=== PATIENT | male | born 1945 ===

== ENCOUNTER 2020-10-16 16:53 | Emergency (ER) | payer MEDICARE ==
[2020-10-16] MEDS ORDERED: hydrALAZINE HCL 20 MG/ML 1 ML VIAL IM STA (17:54)
--- NOTE | 2020-10-16 18:00 | ED ---
General Adult HPI - General Chief complaint: Dizziness Stated complaint: High BP Time Seen by Provider: 10/16/20 17:44 Source: patient Mode of arrival: ambulatory Limitations: no limitations - History of Present Illness Initial comments: Dictation was produced using [employer] dictation software. please excuse any grammatical, word or spelling errors. This patient was cared for during a federal and state declared state of emergency secondary to Covid 19 Chief Complaint: 74-year-old male presents to emergency room with hypertension History of Present Illness: [id number] male he presents to the emergency department for hypertension. Patient was at [facility] when he had his blood pressure checked. Is found to be 188 systolic. His blood pressures rechecked and systolic of 200s. Patient has history of hypertension. Patient takes amlodipine in the morning daily. His hypertension is managed by his primary care physician. Patient denies any chest pain, shortness of breath, strokelike symptoms or headache. Patient has no other complaints at this time. The ROS documented in this emergency department record has been reviewed and confirmed by me. Those systems with pertinent positive or negative responses have been documented in the HPI. All other systems are other negative and/or noncontributory. PHYSICAL EXAM: General Impression: Alert and oriented x3, not in acute distress HEENT: Normocephalic atraumatic, extra-ocular movements intact, pupils equal and reactive to light bilaterally, mucous membranes moist. Cardiovascular: Heart regular rate and rhythm Chest: Able to complete full sentences, no retractions, no tachypnea Abdomen: abdomen soft, non-tender, non-distended, no organomegaly Musculoskeletal: Pulses present and equal in all extremities, no peripheral edema Motor: no focal deficits noted Neurological: CN II-XII grossly intact, no focal motor or sensory deficits noted Skin: Intact with no visualized rashes Psych: Normal affect and mood ED course: 74 y Old male presents to the emergency department for asymptomatic hypertension. Patient has no high-risk features. He has no signs of hyp ertensive emergency. Blood pressure is 169/104, rest of vital signs within acceptable limits. Discussed with patient that he should follow-up with his regular physician for outpatient management of his blood pressure. His EKG is normal. Patient really adamant about receiving some medication in the ER prior to discharge to treat his blood pressure. Given IM hydralazine. He is observed in emergency Department with improvement of blood pressure. Patient is reevaluated prior to discharge and is disabled clinical condition. Patient discharged EKG interpretation: Ventricular rate 75, normal sinus rhythm, OH interval 142, QRS 90, QTC 480. No OH prolongation, no QTC prolongation, no ST or T-wave changes noted. Overall, this EKG is unremarkable - Related Data Allergies Allergy/AdvReac Type Severity Reaction Status Date / Time milk Allergy Nausea & Verified 10/16/20 17:02 Vomiting & Diarrhea Review of Systems ROS Statement: Those systems with pertinent positive or pertinent negative responses have been documented in the HPI. ROS Other: All systems not noted in ROS Statement are negative. 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 Past Psychological History: No Psychological Hx Reported Smoking Status: Former smoker Past Alcohol Use History: None Reported Past Drug Use History: None Reported General Exam Limitations: no limitations Course Vital Signs 10/16/20 17:03 Temperature 98.4 F Pulse Rate 84 Respiratory 18 Rate Blood Pressure 169/104 O2 Sat by Pulse 97 Oximetry Disposition Clinical Impression: Hypertension Disposition: HOME SELF-CARE Condition: Good Instructions (If sedation given, give patient instructions): Hypertension (ED) Is patient prescribed a controlled substance at d/c from ED?: No Referrals: Dio Sawant MD [Primary Care Provider] - 1-2 days Time of Disposition: 18:00
[2020-10-16 18:06] VITALS: RESP 16
[2020-10-16 18:42] VITALS: TEMP 97.9
[2020-10-16 19:05] VITALS: BP 179/96; PULSE 74
== END 2020-10-16 19:18 | disposition home or self-care (01) ==
LOC: EC 16:53
DX: I10 Essential (primary) hypertension (principal); Z91.011 Allergy to milk products; Z96.60 Presence of unspecified orthopedic joint implant; Z87.891 Personal history of nicotine dependence
CPT/HCPCS: 93005; 99283; 96372; J0360

== ENCOUNTER 2022-03-15 18:23 | Emergency (ER) | payer MEDICARE ==
[2022-03-15 18:56] VITALS: BP 173/86; PULSE 114; RESP 20; TEMP 99.2
[2022-03-15] MEDS ORDERED: ACETAMINOPHEN TAB 325 MG TAB PO STA (19:30)
--- NOTE | 2022-03-15 19:38 | ED ---
General Adult HPI - General Chief complaint: Upper Respiratory Infection Stated complaint: high BP Time Seen by Provider: 03/15/22 19:30 Source: patient, RN notes reviewed, old records reviewed Mode of arrival: ambulatory Limitations: no limitations - History of Present Illness Initial comments: 76-year-old well-appearing male presents to the emergency room with 2 days of runny nose, cough and headache. Patient states he was exposed to coronavirus 2 days ago. He does have a history of hypertension and his blood pressure has been elevated while he has been sick. He believes his headache is caused from his blood pressure elevation. He did take his blood pressure medication last night. -: days(s) (2) Location: head, abdomen Associated Symptoms: cough, headaches, other (runny nose) Treatments Prior to Arrival: other (Tylenol) - Related Data Home Medications Medication Instructions Recorded Confirmed Finasteride [Proscar] 5 mg PO HS 10/16/20 03/15/22 Terazosin HCl 5 mg PO HS 10/16/20 03/15/22 HYDROcodone/APAP 7.5-325MG [[place] 1 tab PO TID PRN 03/15/22 03/15/22 7.5-325] Previous Rx's Medication Instructions Recorded lisinopriL [Zestril] 20 mg PO HS 30 Days #30 tab 03/15/22 Allergies Allergy/AdvReac Type Severity Reaction Status Date / Time milk AdvReac Nausea & Verified 03/15/22 20:39 Vomiting & Diarrhea Review of Systems ROS Statement: Those systems with pertinent positive or pertinent negative responses have been documented in the HPI. ROS Other: All systems not noted in ROS Statement are negative. 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 Absent: scleral icterus, conjunctival injection ENT exam: Present: normal exam, normal oropharynx, mucous membranes moist Neck exam: Present: normal inspection. Absent: tenderness, meningismus, full ROM, lymphadenopathy Respiratory exam: Present: normal lung sounds bilaterally. Absent: respiratory distress, accessory muscle use Cardiovascular Exam: Present: tachycardia GI/Abdominal exam: Present: soft. Absent: distended, tenderness, rigid Extremities exam: Present: normal inspection, normal capillary refill. Absent: pedal edema Back exam: Present: normal inspection, full ROM. Absent: tenderness, CVA tenderness (R), CVA tenderness (L), rash noted Neurological exam: Present: alert, oriented X3 Psychiatric exam: Present: normal affect, normal mood Skin exam: Present: warm, normal color. Absent: rash, cyanosis, diaphoretic, erythema, petechiae, pallor Course Vital Signs 03/15/22 18:50 Temperature 99.2 F Pulse Rate 114 H Respiratory 20 Rate Blood Pressure 173/86 O2 Sat by Pulse 99 Oximetry Medical Decision Making - Medical Decision Making X-ray shows no evidence of acute infiltrate. Patient is coronavirus positive. He has been vaccinated and boosted. He declined monoclonal antibodies infusion and paxlovid. He was directed to return to the emergency room with any new or concerning symptoms and advised that he can return for monoclonal antibodies infusion with an 10 days from symptom onset. He is agreeable to being discharged. He was also given a prescription for his lisinopril and directed to discuss blood pressure control during follow-up with primary care doctor this week. Case discussed with Dr. Pruitt - Lab Data Lab Results 03/15/22 03/15/22 Range/Units 20:21 20:21 Coronavirus (PCR) Detected A (Not Detectd) Influenza Type A RNA Not Detected (Not Detectd) Influenza Type B (PCR) Not Detected (Not Detectd) Disposition Clinical Impression: COVID-19, Hypertension Disposition: HOME SELF-CARE Condition: Good Instructions (If sedation given, give patient instructions): Coronavirus Disease 2019 (COVID-19), Hypertension (ED) Additional Instructions: You have coronavirus. You are eligible to get the monoclonal antibodies infusion within 10 days from symptom onset. You can return to the emergency room for this infusion within the next 7 days if you choose to receive this medication. Self quarantine for 10 days from symptom onset to prevent spreading the illness. If after 5 days you have no symptoms you can going into public with just a mask. Increase your fluid intake and take Tylenol as needed for any fever or body aches. I recommend that you discuss your elevated blood pressure with your doctor this week. Prescriptions: lisinopriL [Zestril] 20 mg PO HS 30 Days #30 tab Is patient prescribed a controlled substance at d/c from ED?: No Referrals: Dio Sawant MD [Primary Care Provider] - 1-2 days Time of Disposition: 21:10
[2022-03-15] MEDS ORDERED: amLODIPine 5 MG TAB PO STA (19:40)
--- NOTE | 2022-03-15 20:36 | XR ---
EXAMINATION TYPE: XR chest 2V DATE OF EXAM: 03/15/2022 COMPARISON: 10/01/2019 HISTORY: Cough TECHNIQUE: FINDINGS: Heart is normal. Lungs are clear of consolidation. There are no hilar masses. There are surgical clip s at the right pulmonary hilum. There is slight blunting right costophrenic angle. Bony thorax is int act. IMPRESSION: There is minimal pleural reaction lateral right lung base without change. Previous right- sided surgery. No evidence of acute lung disease. Normal heart.
== END 2022-03-15 21:30 | disposition home or self-care (01) ==
LOC: EC 18:23
DX: U07.1 COVID-19 (principal); I10 Essential (primary) hypertension; Z87.891 Personal history of nicotine dependence; Z91.011 Allergy to milk products; Z79.899 Other long term (current) drug therapy
CPT/HCPCS: 71046; 87502; 87635; 99284

== ENCOUNTER 2022-09-16 15:09 | Inpatient (IN) | payer MEDICARE ==
[2022-09-16] MEDS ORDERED: NITROGLYCERIN-D5W PMX 50 MG in DEXTROSE/WATER 1 250ML.BAG IV ONE (15:13)
[2022-09-16] MEDS ORDERED: MORPHINE SULFATE 4 MG/ML SYRINGE IV STA (15:28)
[2022-09-16] MEDS ORDERED: LORazepam 2 MG/ML INJ IV STA (15:28)
--- NOTE | 2022-09-16 15:47 | ED ---
SOB HPI - General Chief Complaint: Shortness of Breath Stated Complaint: ALYSHA Time Seen by Provider: 09/16/22 15:27 Source: EMS Mode of arrival: EMS Limitations: altered mental status - History of Present Illness Initial Comments: This patient is 76-year-old man brought here by EMS. They had been called to [place] for an individual who was having shortness of breath. The patient was very anxious and not able to give them any history. On arrival, the patient is very dyspneic just keeps repeating that he needs to pee. He did deny chest pain, but he is not able to give any other history due to severe dyspnea. MD Complaint: shortness of breath - Related Data Home Medications Medication Instructions Recorded Confirmed Finasteride [Proscar] 5 mg PO HS 10/16/20 09/16/22 HYDROcodone/APAP 7.5-325MG [[place] 1 tab PO TID PRN 03/15/22 09/16/22 7.5-325] Previous Rx's Medication Instructions Recorded lisinopriL [Zestril] 20 mg PO HS 30 Days #30 tab 03/15/22 Acetaminophen Tab [Tylenol] 650 mg PO Q4HR PRN tab 09/20/22 Aspirin 81 mg PO DAILY #30 tab 09/20/22 Doxazosin [Cardura] 4 mg PO HS #30 tab 09/20/22 Famotidine [Pepcid] 20 mg PO DAILY #30 tab 09/20/22 Furosemide [Lasix] 40 mg PO DAILY #30 tab 09/20/22 carvediloL [Coreg] 3.125 mg PO BID-W/MEALS #60 tab 09/20/22 lisinopriL [Zestril] 20 mg PO DAILY #30 tab 09/20/22 Allergies Allergy/AdvReac Type Severity Reaction Status Date / Time milk AdvReac Nausea & Verified 09/16/22 16:42 Vomiting & Diarrhea Review of Systems ROS Statement: Those systems with pertinent positive or pertinent negative responses have been documented in the HPI. ROS Other: All systems not noted in ROS Statement are negative. 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 Absent: scleral icterus, conjunctival injection Neck exam: Present: normal inspection, full ROM. Absent: meningismus Respiratory exam: Present: respiratory distress, rales, rhonchi, accessory muscle use. Absent: wheezes, stridor Cardiovascular Exam: Present: normal rhythm, tachycardia, systolic murmur. Absent: diastolic murmur, rubs, gallop GI/Abdominal exam: Present: soft. Absent: distended, tenderness, guarding, re bound, rigid, mass, pulsatile mass Extremities exam: Present: normal inspection, normal capillary refill. Absent: pedal edema, calf tenderness Back exam: Present: normal inspection. Absent: CVA tenderness (R), CVA tenderness (L) Neurological exam: Present: alert Skin exam: Present: intact, diaphoretic, mottled. Absent: rash Course Vital Signs 09/16/22 09/16/22 09/16/22 15:25 15:28 15:32 Temperature Pulse Rate 103 H 102 H Pulse Rate [ Pulse Oximetery ] Respiratory 40 H 28 H Rate Blood Pressure 216/120 126/80 Blood Pressure [Right Arm] O2 Sat by Pulse 98 98 Oximetry Fraction of 100 Inspired Oxygen (FIO2) 09/16/22 09/16/22 09/16/22 15:35 16:00 16:20 Temperature Pulse Rate 78 87 Pulse Rate [ Pulse Oximetery ] Respiratory 22 24 Rate Blood Pressure 112/80 84/56 Blood Pressure [Right Arm] O2 Sat by Pulse 100 100 Oximetry Fraction of 100 Inspired Oxygen (FIO2) 09/16/22 09/16/22 09/16/22 17:45 18:21 19:00 Temperature 97.6 F Pulse Rate 77 Pulse Rate [ 76 Pulse Oximetery ] Respiratory 22 18 Rate Blood Pressure 139/73 Blood Pressure 136/77 [Right Arm] O2 Sat by Pulse 100 99 100 Oximetry Fraction of Inspired Oxygen (FIO2) 09/16/22 09/16/22 09/16/22 19:23 19:24 22:59 Temperature Pulse Rate Pulse Rate [ Pulse Oximetery ] Respiratory Rate Blood Pressure Blood Pressure [Right Arm] O2 Sat by Pulse Oximetry Fraction of 50 40 40 Inspired Oxygen (FIO2) 09/16/22 09/17/22 09/17/22 23:52 03:29 04:52 Temperature Pulse Rate 88 Pulse Rate [ Pulse Oximetery ] Respiratory 19 Rate Blood Pressure 136/65 Blood Pressure [Right Arm] O2 Sat by Pulse 99 96 Oximetry Fraction of 40 Inspired Oxygen (FIO2) 09/17/22 09/17/22 09/17/22 05:59 08:38 12:40 Temperature 97.7 F Pulse Rate 68 82 77 Pulse Rate [ Pulse Oximetery ] Respiratory 16 20 18 Rate Blood Pressure 144/64 138/73 142/71 Blood Pressure [Right Arm] O2 Sat by Pulse 96 97 99 Oximetry Fraction of Inspired Oxygen (FIO2) 09/17/22 09/17/22 14:14 15:05 Temperature Pulse Rate 81 81 Pulse Rate [ Pulse Oximetery ] Respiratory 18 18 Rate Blood Pressure 143/77 138/76 Blood Pressure [Right Arm] O2 Sat by Pulse 99 99 Oximetry Fraction of Inspired Oxygen (FIO2) Medical Decision Making - Medical Decision Making This patient is 76-year-old man brought by ambulance to have evaluation for severe dyspnea. On arrival patient markedly hypertensive, tachycardic, tachypnea and poor saturations. He is brought directly to the trauma bay, where he is placed on monitors and supplemental oxygen. IV is started to administer nitroglycerin as well as other medications, and respiratory paged and on arrival placed patient on BiPAP. IV morphine given for preload reduction. Ativan given as patient very anxious and attempting to get out of bed. On arrival it appeared patient would require intubation but he did rapidly respond to IV nitroglycerin. He was given 2 aliquots by myself standing at the bedside rechecking the blood pressure. The patient was able to be weaned from the BiPAP mask to a nonrebreather mask. He is able to speak initially in short phrases then in sentences. Patient denying chest pains throughout. Case is discussed with admitting physician and then also with pulmonology. - Lab Data Result diagrams: 09/20/22 07:35 09/20/22 07:35 Lab Results 09/16/22 09/16/22 09/16/22 Range/Units 15:55 15:55 15:55 WBC 9.8 (3.8-10.6) k/uL RBC 4.08 L (4.30-5.90) m/uL Hgb 13.5 (13.0-17.5) gm/dL Hct 41.8 (39.0-53.0) % MCV 102.5 H (80.0-100.0) fL MCH 33.1 (25.0-35.0) pg MCHC 32.3 (31.0-37.0) g/dL RDW 12.3 (11.5-15.5) % Plt Count 301 (150-450) k/uL MPV 9.9 Neutrophils % 68 % Lymphocytes % 25 % Monocytes % 4 % Eosinophils % 1 % Basophils % 1 % Neutrophils # 6.6 (1.3-7.7) k/uL Lymphocytes # 2.5 (1.0-4.8) k/uL Monocytes # 0.4 (0-1.0) k/uL Eosinophils # 0.1 (0-0.7) k/uL Basophils # 0.1 (0-0.2) k/uL Hypochromasia Slight PT 10.4 (9.0-12.0) sec INR 1.0 (<1.2) APTT 22.2 (22.0-30.0) sec D-Dimer 1.52 H (<0.60) mg/L FEU Sodium 143 (137-145) mmol/L Potassium 3.3 L (3.5-5.1) mmol/L Chloride 107 (98-107) mmol/L Carbon Dioxide 24 (22-30) mmol/L Anion Gap 12 mmol/L BUN 16 (9-20) mg/dL Creatinine 0.87 (0.66-1.25) mg/dL Est GFR (CKD-EPI)AfAm >90 (>60 ml/min/1.73 sqM) Est GFR (CKD-EPI)NonAf 84 (>60 ml/min/1.73 sqM) Glucose 214 H (74-99) mg/dL Plasma Lactic Acid Solo (0.7-2.0) mmol/L Calcium 8.3 L (8.4-10.2) mg/dL Magnesium 2.0 (1.6-2.3) mg/dL Total Bilirubin 0.7 (0.2-1.3) mg/dL AST 62 H (17-59) U/L ALT 56 H (4-49) U/L Alkaline Phosphatase 96 (38-126) U/L Troponin I (0.000-0.034) ng/mL NT-Pro-B Natriuret Pep pg/mL Total Protein 6.9 (6.3-8.2) g/dL Albumin 4.2 (3.5-5.0) g/dL Coronavirus (PCR) (Not Detectd) Influenza Type A RNA (Not Detectd) Influenza Type B (PCR) (Not Detectd) 09/16/22 09/16/22 09/16/22 Range/Units 15:55 15:55 15:55 WBC (3.8-10.6) k/uL RBC (4.30-5.90) m/uL Hgb (13.0-17.5) gm/dL Hct (39.0-53.0) % MCV (80.0-100.0) fL MCH (25.0-35.0) pg MCHC (31.0-37.0) g/dL RDW (11.5-15.5) % Plt Count (150-450) k/uL MPV Neutrophils % % Lymphocytes % % Monocytes % % Eosinophils % % Basophils % % Neutrophils # (1.3-7.7) k/uL Lymphocytes # (1.0-4.8) k/uL Monocytes # (0-1.0) k/uL Eosinophils # (0-0.7) k/uL Basophils # (0-0.2) k/uL Hypochromasia PT (9.0-12.0) sec INR (<1.2) APTT (22.0-30.0) sec D-Dimer (<0.60) mg/L FEU Sodium (137-145) mmol/L Potassium (3.5-5.1) mmol/L Chloride (98-107) mmol/L Carbon Dioxide (22-30) mmol/L Anion Gap mmol/L BUN (9-20) mg/dL Creatinine (0.66-1.25) mg/dL Est GFR (CKD-EPI)AfAm (>60 ml/min/1.73 sqM) Est GFR (CKD-EPI)NonAf (>60 ml/min/1.73 sqM) Glucose (74-99) mg/dL Plasma Lactic Acid Solo 6.2 H* (0.7-2.0) mmol/L Calcium (8.4-10.2) mg/dL Magnesium (1.6-2.3) mg/dL Total Bilirubin (0.2-1.3) mg/dL AST (17-59) U/L ALT (4-49) U/L Alkaline Phosphatase (38-126) U/L Troponin I 0.027 (0.000-0.034) ng/mL NT-Pro-B Natriuret Pep 1010 pg/mL Total Protein (6.3-8.2) g/dL Albumin (3.5-5.0) g/dL Coronavirus (PCR) (Not Detectd) Influenza Type A RNA (Not Detectd) Influenza Type B (PCR) (Not Detectd) 09/16/22 09/16/22 Range/Units 15:55 15:55 WBC (3.8-10.6) k/uL RBC (4.30-5.90) m/uL Hgb (13.0-17.5) gm/dL Hct (39.0-53.0) % MCV (80.0-100.0) fL MCH (25.0-35.0) pg MCHC (31.0-37.0) g/dL RDW (11.5-15.5) % Plt Count (150-450) k/uL MPV Neutrophils % % Lymphocytes % % Monocytes % % Eosinophils % % Basophils % % Neutrophils # (1.3-7.7) k/uL Lymphocytes # (1.0-4.8) k/uL Monocytes # (0-1.0) k/uL Eosinophils # (0-0.7) k/uL Basophils # (0-0.2) k/uL Hypochromasia PT (9.0-12.0) sec INR (<1.2) APTT (22.0-30.0) sec D-Dimer (<0.60) mg/L FEU Sodium (137-145) mmol/L Potassium (3.5-5.1) mmol/L Chloride (98-107) mmol/L Carbon Dioxide (22-30) mmol/L Anion Gap mmol/L BUN (9-20) mg/dL Creatinine (0.66-1.25) mg/dL Est GFR (CKD-EPI)AfAm (>60 ml/min/1.73 sqM) Est GFR (CKD-EPI)NonAf (>60 ml/min/1.73 sqM) Glucose (74-99) mg/dL Plasma Lactic Acid Solo (0.7-2.0) mmol/L Calcium (8.4-10.2) mg/dL Magnesium (1.6-2.3) mg/dL Total Bilirubin (0.2-1.3) mg/dL AST (17-59) U/L ALT (4-49) U/L Alkaline Phosphatase (38-126) U/L Troponin I (0.000-0.034) ng/mL NT-Pro-B Natriuret Pep pg/mL Total Protein (6.3-8.2) g/dL Albumin (3.5-5.0) g/dL Coronavirus (PCR) Not Detected (Not Detectd) Influenza Type A RNA Not Detected (Not Detectd) Influenza Type B (PCR) Not Detected (Not Detectd) - EKG Data -: EKG Interpreted by [facility] EKG shows normal: sinus rhythm, axis (Normal), intervals (Normal), ST-T waves (Possible lateral ischemia) Rate: tachycardia (Rate 111 bpm) Critical Care Time Critical Care Time: Yes (40 minutes) Disposition Clinical Impression: Hypertensive emergency, CHF (congestive heart failure) Disposition: ADMITTED IP TO THIS HOSP Condition: Fair Is patient prescribed a controlled substance at d/c from ED?: No Time of Disposition: 17:15
[2022-09-16 15:59] LABS: Basophils # (A) 0.1 k/uL (0-0.2); Basophils % (A) 1 %; Eosinophils # (A) 0.1 k/uL (0-0.7); Eosinophils % (A) 1 %; HCT 41.8 % (39.0-53.0); HGB 13.5 gm/dL (13.0-17.5); Hypochromasia Slight; Lymphocytes # (A) 2.5 k/uL (1.0-4.8); Lymphocytes % (A) 25 %; MCH 33.1 pg (25.0-35.0); MCHC 32.3 g/dL (31.0-37.0); MCV 102.5 fL (80.0-100.0); Mean Platelet Volume 9.9; Monocytes # (A) 0.4 k/uL (0-1.0); Monocytes % (A) 4 %; Neutrophils # (A) 6.6 k/uL (1.3-7.7); Neutrophils % (A) 68 %; Platelet Count 301 k/uL (150-450); RBC 4.08 m/uL (4.30-5.90); RDW 12.3 % (11.5-15.5); WBC 9.8 k/uL (3.8-10.6)
[2022-09-16 16:08] LABS: ALT 56 U/L (4-49); AST 62 U/L (17-59); African American GFR (CKD) >90 (>60 ml/min/1.73 sqM); Albumin 4.2 g/dL (3.5-5.0); Alkaline Phosphatase 96 U/L (38-126); Anion Gap 12 mmol/L; Blood Urea Nitrogen 16 mg/dL (9-20); Calcium 8.3 mg/dL (8.4-10.2); Carbon Dioxide 24 mmol/L (22-30); Chloride 107 mmol/L (98-107); Glucose 214 mg/dL (74-99); Non-African American GFR(CKD) 84 (>60 ml/min/1.73 sqM); Potassium 3.3 mmol/L (3.5-5.1); Sodium 143 mmol/L (137-145); Total Bilirubin 0.7 mg/dL (0.2-1.3); Total Protein 6.9 g/dL (6.3-8.2)
[2022-09-16 16:21] LABS: Partial Thromboplastin Time 22.2 sec (22.0-30.0); Prothrombin Time 10.4 sec (9.0-12.0)
--- NOTE | 2022-09-16 16:26 | XR ---
EXAMINATION TYPE: XR chest 1V portable DATE OF EXAM: 09/16/2022 HISTORY: Shortness of breath. COMPARISON: 03/15/2022 TECHNIQUE: Single view of the chest is submitted. FINDINGS: Demonstrated are scattered senescent parenchymal change. Perihilar and basilar infiltrates noted which could be on the basis of pneumonia versus pulmonary palomo ma. No sizable pleural effusion however is noted at this time. Correlate clinically. The heart is stable. Hilar and mediastinal structures are within normal limits. Degenerative changes are seen of the dorsal spine. IMPRESSION: 1. Perihilar and basilar infiltrates noted which could be on the basis of pneumonia versus pulmonary edema. Correlate clinically
[2022-09-16] MEDS ORDERED: INSULIN REGULAR 100 UNIT/ML VIAL (IV) SQ STA (16:34)
[2022-09-16] MEDS ORDERED: POTASSIUM CHLORIDE ER 20 MEQ TAB.ER PO STA (16:34)
[2022-09-16] MEDS ORDERED: NALOXONE 0.4 MG/ML 1 ML VIAL IV PRN (17:15)
[2022-09-16] MEDS ORDERED: ACETAMINOPHEN TAB 325 MG TAB PO PRN (17:15)
[2022-09-16] MEDS ORDERED: Potassium Replacement Protocol 1 EACH MISC MISCELLANE PRN (17:15)
--- NOTE | 2022-09-16 18:27 | CT ---
EXAMINATION TYPE: CT chest angio for PE DATE OF EXAM: 09/16/2022 COMPARISON: NONE HISTORY: Dyspnea, pt on non-rebreather, not able to follow breathing instructions. CT DLP: 474.5 mGycm. Automated Exposure Control for Dose Reduction was Utilized. CONTRAST: CTA scan of the thorax is performed with IV Contrast, patient injected with 100 mL of Isovu e 370. MIP Images are created on CT scanner and reviewed. 3D reconstructed images are created on an independent workstation and reviewed. FINDINGS: Limitation: There is motion artifact and bilateral upper extremity streak artifact on all images, and additional streak artifact at the level of the distalmost SVC. LUNGS: The airways are unremarkable. There is a prominent interstitial pattern of increased attenuati on seen throughout the lungs bilaterally, and widespread groundglass opacity pattern seen throughout the lungs as well. These changes are consistent with a clinical diagnosis of advanced interstitial an d alveolar phase pulmonary edema. PLEURAL SPACES: Negative MEDIASTINUM: There is satisfactory enhancement of the pulmonary artery and its branches, with no CT e vidence for pulmonary embolism. No acute aortic findings. Pulmonary arterial There are no greater deneen n 1 cm hilar or mediastinal lymph nodes. No cardiomegaly or pericardial effusion is seen. Prominent c oronary calcifications are seen. OTHER / MISCELLANEOUS: No acute findings. IMPRESSION: 1. Negative for pulmonary embolism. 2. Severe lung parenchymal abnormalities bilaterally, likely advanced pulmonary edema.
[2022-09-16] MEDS: SODIUM CHLORIDE 0.9% 1,000 ML IV SCH (18:35)
[2022-09-16] MEDS ORDERED: NITROGLYCERIN OINT 1 INCH/GM PACKET TOPICAL STA (18:50)
[2022-09-16] MEDS: DOXAZOSIN 4 MG TAB PO SCH (22:14)
[2022-09-16] MEDS: FAMOTIDINE 20 MG TAB PO SCH (22:14)
[2022-09-16] MEDS: FINASTERIDE 5 MG TAB PO SCH (22:14)
[2022-09-17 06:15] LABS: Basophils % (A) 0 %; Eosinophils # (A) 0.1 k/uL (0-0.7); Eosinophils % (A) 1 %; HCT 33.9 % (39.0-53.0); HGB 11.1 gm/dL (13.0-17.5); Lymphocytes # (A) 0.8 k/uL (1.0-4.8); Lymphocytes % (A) 8 %; MCH 32.9 pg (25.0-35.0); MCHC 32.9 g/dL (31.0-37.0); MCV 99.8 fL (80.0-100.0); Mean Platelet Volume 10.5; Monocytes # (A) 0.5 k/uL (0-1.0); Monocytes % (A) 5 %; Neutrophils # (A) 8.7 k/uL (1.3-7.7); Neutrophils % (A) 85 %; Platelet Count 224 k/uL (150-450); RBC 3.39 m/uL (4.30-5.90); RDW 12.9 % (11.5-15.5); WBC 10.2 k/uL (3.8-10.6)
[2022-09-17 06:31] LABS: African American GFR (CKD) >90 (>60 ml/min/1.73 sqM); Anion Gap 5 mmol/L; Blood Urea Nitrogen 21 mg/dL (9-20); Carbon Dioxide 27 mmol/L (22-30); Chloride 108 mmol/L (98-107); Glucose 99 mg/dL (74-99); Non-African American GFR(CKD) >90 (>60 ml/min/1.73 sqM); Potassium 3.4 mmol/L (3.5-5.1); Sodium 140 mmol/L (137-145)
[2022-09-17] MEDS: FAMOTIDINE 20 MG TAB PO SCH ×2 (08:35→19:41)
[2022-09-17] MEDS: HYDROcodone/APAP 7.5-325MG 1 EACH TAB PO PRN ×3 (08:35→23:23)
[2022-09-17] MEDS ORDERED: FUROSEMIDE 10 MG/ML 4 ML VIAL IV SCH (09:30)
--- NOTE | 2022-09-17 11:49 | CA ---
Transthoracic Echo Report Name: Rojelio Pizarro Age: 76 Gender: M : 1945 Exam Date: 09/17/2022 09:45 Exam Location: [facility] Ht (in): 60 Wt (lb): 110 Ordering Physician: Jessica Clark Attending/Referring Phys: Water Inspector Alis Balderas RDCS Procedure CPT: Indications: chf Cardiac Hx: Technical Quality: Contrast 1: Total Dose (mL): Contrast 2: Total Dose (mL): MEASUREMENTS (Male / Female) Normal Values 2D ECHO LV Diastolic Diameter PLAX 4.8 cm 4.2 - 5.9 / 3.9 - 5.3 cm LV Systolic Diameter PLAX 3.8 cm IVS Diastolic Thickness 1.1 cm 0.6 - 1.0 / 0.6 - 0.9 cm LVPW Diastolic Thickness 1.8 cm 0.6 - 1.0 / 0.6 - 0.9 cm LV Relative Wall Thickness 0.6 RV Internal Dim ED PLAX 3.0 cm LA Systolic Diameter LX 4.0 cm 3.0 - 4.0 / 2.7 - 3.8 cm LA Volume 95.6 cm??? 18 - 58 / 22 - 52 cm??? M-MODE Aortic Root Diameter MM 3.6 cm LA Systolic Diameter MM 4.3 cm LA Ao Ratio MM 1.2 MV E Point Septal Separation 0.8 cm AV Cusp Separation MM 1.5 cm DOPPLER AV Peak Velocity 151.6 cm/s AV Peak Gradient 9.2 mmHg MV Area PHT 2.8 cm??? Mitral E Point Velocity 124.3 cm/s Mitral A Point Velocity 110.3 cm/s Mitral E to A Ratio 1.1 MV Deceleration Time 274.9 ms MV E' Velocity 5.5 cm/s Mitral E to MV E' Ratio 22.5 TR Peak Velocity 295.7 cm/s TR Peak Gradient 35.0 mmHg Right Ventricular Systolic Press 38.9 mmHg FINDINGS Left Ventricle Left ventricular ejection fraction is estimated at 55 %. Left ventricular cavity size normal. Mildly increased left ventricular wall thickness. Right Ventricle Normal right ventricular size and function. Mild pulmonary hypertension. Right Atrium Normal right atrial size. Left Atrium Severely increased left atrial volume. Mildly increased left atrial area. Mitral Valve Structurally normal mitral valve. Mild mitral regurgitation. Aortic Valve Trileaflet aortic valve. Tricuspid Valve Structurally normal tricuspid valve. Mild tricuspid regurgitation. Pulmonic Valve Structurally normal pulmonic valve. Pericardium Normal pericardium. Aorta Normal size aortic root and proximal ascending aorta. CONCLUSIONS LVH with preserved systolic function Previewed by: Dr. Jean Alcantar MD (Electronically Signed) Final Date: 17 September 2022 11:48
--- NOTE | 2022-09-17 12:17 | P.CRDCN ---
History of Present Illness History of present illness: This is a 76 year old male with a past medical history of hypertension. He does not follow with a vp respiratory. We are consulted for hypertensive emergency and congestive heart failure. He presents to the ER with complaints of worsening shortness of breath. He states he stopped taking his antihypertensive medication secondary to cost issues. Over the past week has been getting more short of breath. He endorses some weight loss. He denies any chest pain, lower extremity edema, weight cane, suggest orthopnea or PND. On arrival patient was hypotensive with blood pressure 200s/100s he was also tachycardiac and tachypnea. He was started on IV nitroglycerin and BiPAP. He was stabilized, eventually weaned to nasal cannula. His BP has improved. Initial troponin was negative. He denies any history of CAD, [place], Stroke, diabetes, seizures. Former smoker. DIAGNOSTICS * EKG reveals sinus tachycardia, HR 111, ST depression noted in V4, V5, V6, I, aVL, II and aVF. Prior EKG similar but patient not as tachycardic * Echocardiogram revealed EF 55%, mild mitral regurgitation, mild tricuspid regurgitation * Telemetry tracings indicate sinus rhythm * CTA chest reveal negative for pulmonary embolism, severe lung Abnormalities bilaterally, likely advanced pulmonary edema. * Chest x-ray with bilateral infiltrates noted pneumonia versus pulmonary edema. * Laboratory reviewed, CBC 10.2, hemoglobin 11.1, platelets 224, sodium 140, potassium 3.4, BUN 21, serum current 0.7, troponin negative, proBNP 1010, COVID-19 negative, influenza negative REVIEW OF SYSTEMS At the time of my exam: CONSTITUTIONAL: Denies fever or chills. CARDIOVASCULAR: Denies chest pain, +shortness of breath, Denies orthopnea, PND or palpitations. RESPIRATORY: Denies cough. GASTROINTESTINAL: Denies abdominal pain, diarrhea, constipation, nausea or vomiting. MUSCULOSKELETAL: Denies myalgias. NEUROLOGIC: Denies numbness, tingling, headacbe or weakness. ENDOCRINE: Denies fatigue, weight change, polydipsia or polyurina. GENITOURINARY: Denies burning, hematuria or urgency with micturation. HEMATOLOGIC: Denies history of anemia or bleeding. PHYSICAL EXAMINATION Blood pressure 130/73, heart rate 82, afebrile, saturations 97% on 3 L nasal cannula CONSTITUTIONAL: No apparent distress. HEENT: Head is normocephalic. Pupils are equal, round. Sclerae anicteric. Mucous membranes of the mouth are moist. No JVD. No carotid bruit. CHEST EXAMINATION: Lungs are clear to auscultation. No chest wall tenderness is noted on palpation or with deep breathing. HEART EXAMINATION: Regular rate and rhythm. S1, S2 heard. No murmurs, gallops or rub. ABDOMEN: Soft, nontender. Positive bowel sounds. EXTREMITIES: 2+ peripheral pulses, no lower extremity edema and no calf tenderness. NEUROLOGIC EXAMINATION: Patient is awake, alert and oriented x3. ASSESSMENT Hypertensive emergency, likely related to stopping his medications about 2 weeks ago Shortness of breath Acute heart failure exacerbation with preserved ejection fraction History of hypertension PLAN Trend troponin Repeat EKG Restart Lisinopril 20mg daily IV Lasix for 24 hours Monitor I/Os, daily weights, renal function and electrolytes Lipid panel Discontinue IV nitroglycerin Further recommendations based on clinical course Nurse practitioner note has been reviewed by physician. Signing provider agrees with the documented findings, assessment, and plan of care. 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 Past Psychological History: No Psychological Hx Reported Smoking Status: Former smoker Past Alcohol Use History: None Reported Past Drug Use History: None Reported Medications and Allergies Home Medications Medication Instructions Recorded Confirmed Type Finasteride [Proscar] 5 mg PO HS 10/16/20 09/16/22 History Terazosin HCl 5 mg PO HS 10/16/20 09/16/22 History HYDROcodone/APAP 7.5-325MG [[place] 1 tab PO TID PRN 03/15/22 09/16/22 History 7.5-325] lisinopriL [Zestril] 20 mg PO HS 30 Days #30 tab 03/15/22 09/16/22 Rx Allergies Allergy/AdvReac Type Severity Reaction Status Date / Time milk AdvReac Nausea & Verified 09/16/22 16:42 Vomiting & Diarrhea Physical Exam Vitals: Vital Signs Pulse Resp BP Pulse Ox FiO2 09/17/22 05:59 68 16 144/64 96 09/17/22 04:52 96 09/17/22 03:29 40 09/16/22 23:52 88 19 136/65 99 09/16/22 22:59 40 09/16/22 19:24 40 09/16/22 19:23 50 09/16/22 19:00 100 09/16/22 17:45 77 22 139/73 100 09/16/22 16:20 87 24 84/56 100 09/16/22 16:00 78 22 112/80 100 09/16/22 15:35 100 09/16/22 15:32 102 H 28 H 126/80 98 09/16/22 15:28 103 H 40 H 216/120 98 09/16/22 15:25 100 Intake and Output 09/16/22 09/17/22 09/17/22 22:59 06:59 14:59 Intake Total 1.4 Balance 1.4 Intake: Intake, IV Titration 1.4 Amount Nitroglycerin-D5w Pmx 50 1.4 mg In Dextrose/Water 1 250ml.bag @ 5 MCG/MIN 1.5 mls/hr IV .Q24H ONE Rx#: [id number] Other: Weight 63.503 kg Results 09/17/22 05:27 09/17/22 05:27 Cardiac Enzymes 09/16/22 09/16/22 Range/Units 15:55 15:55 AST 62 H (17-59) U/L Troponin I 0.027 (0.000-0.034) ng/mL Coagulation 09/16/22 Range/Units 15:55 PT 10.4 (9.0-12.0) sec APTT 22.2 (22.0-30.0) sec CBC 09/16/22 09/17/22 Range/Units 15:55 05:27 WBC 9.8 10.2 (3.8-10.6) k/uL RBC 4.08 L 3.39 L (4.30-5.90) m/uL Hgb 13.5 11.1 L (13.0-17.5) gm/dL Hct 41.8 33.9 L (39.0-53.0) % Plt Count 301 224 (150-450) k/uL Comprehensive Metabolic Panel 09/16/22 09/17/22 Range/Units 15:55 05:27 Sodium 143 140 (137-145) mmol/L Potassium 3.3 L 3.4 L (3.5-5.1) mmol/L Chloride 107 108 H (98-107) mmol/L Carbon Dioxide 24 27 (22-30) mmol/L BUN 16 21 H (9-20) mg/dL Creatinine 0.87 0.71 (0.66-1.25) mg/dL Glucose 214 H 99 (74-99) mg/dL Calcium 8.3 L 8.0 L (8.4-10.2) mg/dL AST 62 H (17-59) U/L ALT 56 H (4-49) U/L Alkaline Phosphatase 96 (38-126) U/L Total Protein 6.9 (6.3-8.2) g/dL Albumin 4.2 (3.5-5.0) g/dL Current Medications Generic Name Dose Route Start Last Admin Trade Name Freq PRN Reason Stop Dose Admin Acetaminophen 650 mg 09/16/22 17:15 Acetaminophen Tab 325 Mg Tab PO Q4HR PRN Fever and/or Mild Pain Hydrocodone Bitart/Acetaminophen 1 each 09/16/22 18:30 Hydrocodone/Apap 7.5-325mg 1 Each Tab PO TID PRN Moderate Pain Doxazosin Mesylate 4 mg 09/16/22 21:00 09/16/22 22:14 Doxazosin 4 Mg Tab PO 4 mg HS SORAYA Administration Famotidine 20 mg 09/16/22 21:00 09/16/22 22:14 Famotidine 20 Mg Tab PO 20 mg BID SORAYA Administration Finasteride 5 mg 09/16/22 21:00 09/16/22 22:14 Finasteride 5 Mg Tab PO 5 mg HS SORAYA Administration Nitroglycerin/Dextrose 50 mg/ 250 mls @ 1.5 mls/hr 09/16/22 15:13 09/16/22 16:32 IV Solution IV 09/17/22 15:12 0 mcg/min .Q24H ONE 0 mls/hr Titration Protocol 5 MCG/MIN Sodium Chloride 1,000 mls @ 20 mls/hr 09/16/22 17:15 09/16/22 18:35 Saline 0.9% IV 20 mls/hr .Q24H SORAYA Administration Miscellaneous Information 1 each 09/16/22 17:15 Potassium Replacement Protocol 1 Each Misc MISCELLANE DAILY PRN Per Protocol Naloxone HCl 0.2 mg 12/08/22 17:15 Naloxone 0.4 Mg/Ml 1 Ml Vial IV Q2M PRN Opioid Reversal Intake and Output 09/16/22 09/17/22 09/17/22 22:59 06:59 14:59 Intake Total 1.4 Balance 1.4 Intake: Intake, IV Titration 1.4 Amount Nitroglycerin-D5w Pmx 50 1.4 mg In Dextrose/Water 1 250ml.bag @ 5 MCG/MIN 1.5 mls/hr IV .Q24H ONE Rx#: [id number] Other: Weight 63.503 kg 09/17/22 05:27 09/17/22 05:27
[2022-09-17] MEDS: lisinopriL 20 MG TAB PO SCH (12:30)
[2022-09-17] MEDS ORDERED: HEPARIN SODIUM 1,000 UN/ML (10ML VL) IV PRN (12:52)
[2022-09-17] MEDS ORDERED: HEPARIN SODIUM 1,000 UN/ML (10ML VL) IV ONE (12:52)
[2022-09-17] MEDS ORDERED: POTASSIUM CHLORIDE ER 20 MEQ TAB.ER PO STA (12:55)
[2022-09-17] MEDS: FUROSEMIDE 10 MG/ML 4 ML VIAL IV SCH (13:26)
[2022-09-17 13:39] LABS: Partial Thromboplastin Time 28.3 sec (22.0-30.0); Prothrombin Time 10.7 sec (9.0-12.0)
[2022-09-17] MEDS: HEPARIN SOD,PORK IN 0.45% NACL 25,000 UNIT in 0.45% NACL 1 250ML.BAG IV SCH (14:13)
--- NOTE | 2022-09-17 14:57 | P.CNPUL ---
History of Present Illness Consult date: 09/17/22 Requesting physician: Thony Chung Reason for consult: dyspnea, abnormal CXR/CT Chief complaint: Shortness of breath History of present illness: This is a pleasant 76-year-old male patient who follows with Dr. Sawant as his primary care provider. He has a history of hypertension, BPH. He was brought in by EMS yesterday with a rather acute episode of shortness of breath. he was seen initially in hypertensive urgency with a blood pressure 216/120. Started on a nitroglycerin drip. Chest x-ray revealed perihilar basilar infiltrates suspect pneumonia versus pulmonary edema. CT angiogram ruled out pulmonary embolism. There was increased attenuation throughout the lungs bilaterally, widespread groundglass opacity pattern consistent with interstitial and alveolar pulmonary edema. White count 10.2. Hemoglobin 11.1. Platelet count 224. Sodium 140. Potassium 3.4. Bicarb 27. BUN 21. Creatinine 0.71. initial troponin 0.027. Currently 0.644. ProBNP 1010. Brown virus and influenza screen negative. Echocardiogram did reveal evidence of left ventricular hypertrophy. Preserved left ventricular systolic function with ejection fraction of 55%. No significant valvular abnormalities. He is seen today in consultation in the emergency department. He is currently sitting up on the stretcher. Awake and alert in no acute distress. States he is breathing quite a bit better today compared to yesterday. He is maintaining O2 saturations up to 100% on 2 L/m per nasal cannula. He is afebrile. The pressure improved and nitroglycerin drip is currently off. He remains on heparin drip. He remains on IV diuretics. Review of Systems REVIEW OF SYSTEMS: CONSTITUTIONAL: Denies any recent significant weight loss or weight gain. EYES: Denies change in vision. EARS, NOSE, MOUTH, THROAT: Denies headaches, denies sore throat. CARDIOVASCULAR: Denies chest pain, palpitations or syncopal episodes. RESPIRATORY: Positive for shortness of breath, no cough, congestion or hemoptysis. GASTROINTESTINAL: Denies change in appetite, denies abdominal pain GENITOURINARY: Denies hematuria, denies infections. MUSKULOSKELETAL: Denies pain, denies swelling. INTEGUMENTARY: Denies rash, denies eczema. NEUROLOGICAL: Denies recent memory loss, no recent seizure activity. PSYCHIATRIC: Denies anxiety, denies depression. HEMATOLOGIC/LYMPHATIC: Denies anemia, denies enlarged lymph nodes. 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 Past Psychological History: No Psychological Hx Reported Smoking Status: Former smoker Past Alcohol Use History: None Reported Past Drug Use History: None Reported Medications and Allergies Home Medications Medication Instructions Recorded Confirmed Type Finasteride [Proscar] 5 mg PO HS 10/16/20 09/16/22 History Terazosin HCl 5 mg PO HS 10/16/20 09/16/22 History HYDROcodone/APAP 7.5-325MG [[place] 1 tab PO TID PRN 03/15/22 09/16/22 History 7.5-325] lisinopriL [Zestril] 20 mg PO HS 30 Days #30 tab 03/15/22 09/16/22 Rx Allergies Allergy/AdvReac Type Severity Reaction Status Date / Time milk AdvReac Nausea & Verified 09/16/22 16:42 Vomiting & Diarrhea Physical Exam Vitals: Vital Signs Temp Pulse Resp BP Pulse Ox FiO2 09/17/22 14:14 81 18 143/77 99 09/17/22 12:40 77 18 142/71 99 09/17/22 08:38 97.7 F 82 20 138/73 97 09/17/22 05:59 68 16 144/64 96 09/17/22 04:52 96 09/17/22 03:29 40 09/16/22 23:52 88 19 136/65 99 09/16/22 22:59 40 09/16/22 19:24 40 09/16/22 19:23 50 09/16/22 19:00 100 09/16/22 17:45 77 22 139/73 100 09/16/22 16:20 87 24 84/56 100 09/16/22 16:00 78 22 112/80 100 09/16/22 15:35 100 09/16/22 15:32 102 H 28 H 126/80 98 09/16/22 15:28 103 H 40 H 216/120 98 09/16/22 15:25 100 Intake and Output 09/16/22 09/17/22 09/17/22 22:59 06:59 14:59 Intake Total 1.4 Balance 1.4 Intake: Intake, IV Titration 1.4 Amount Nitroglycerin-D5w Pmx 50 1.4 mg In Dextrose/Water 1 250ml.bag @ 5 MCG/MIN 1.5 mls/hr IV .Q24H ONE Rx#: [id number] Other: Weight 63.503 kg GENERAL EXAM: Alert, pleasant 76-year-old male patient, on 2 L nasal cannula, fairly comfortable in no apparent distress. HEAD: Normocephalic. EYES: Normal reaction of pupils, equal size. NOSE: Clear with pink turbinates. THROAT: No erythema or exudates. NECK: No masses, no JVD. CHEST: No chest wall deformity. LUNGS: Equal air entry with crackles in the bilateral bases. CVS: S1 and S2 normal with no audible murmur, regular rhythm. ABDOMEN: No hepatosplenomegaly, normal bowel sounds, no guarding or rigidity. SPINE: No scoliosis or deformity SKIN: No rashes CENTRAL NERVOUS SYSTEM: No focal deficits, tone is normal in all 4 extremities. EXTREMITIES: There is no peripheral edema. No clubbing, no cyanosis. Peripheral pulses are intact. Results - Laboratory Findings CBC and BMP: 09/17/22 05:27 09/17/22 05:27 PT/INR, D-dimer PT 10.7 sec (9.0-12.0) 09/17/22 12:52 INR 1.0 (<1.2) 09/17/22 12:52 D-Dimer 1.52 mg/L FEU (<0.60) H 09/16/22 15:55 Abnormal lab findings: Abnormal Labs 09/16/22 09/16/22 09/16/22 15:55 15:55 15:55 RBC 4.08 L Hgb Hct MCV 102.5 H Neutrophils # Lymphocytes # D-Dimer 1.52 H Potassium 3.3 L Chloride BUN Glucose 214 H Plasma Lactic Acid Solo Calcium 8.3 L AST 62 H ALT 56 H Troponin I 09/16/22 09/16/22 09/17/22 15:55 20:19 05:27 RBC 3.39 L Hgb 11.1 L Hct 33.9 L MCV Neutrophils # 8.7 H Lymphocytes # 0.8 L D-Dimer Potassium Chloride BUN Glucose Plasma Lactic Acid Solo 6.2 H* 2.7 H* Calcium AST ALT Troponin I 09/17/22 09/17/22 09/17/22 05:27 09:17 13:00 RBC Hgb Hct MCV Neutrophils # Lymphocytes # D-Dimer Potassium 3.4 L Chloride 108 H BUN 21 H Glucose Plasma Lactic Acid Solo Calcium 8.0 L AST ALT Troponin I 0.748 H* 0.644 H* - Diagnostic Findings Chest x-ray: image reviewed CT scan - chest: image reviewed Assessment and Plan Assessment: Acute dyspnea secondary to hypertensive urgency and significant left ventricular hypertrophy with preserved left ventricular systolic function. Initially required a nitroglycerin drip Hypertension Troponin leak, initiated on a heparin drip Benign prostatic hyperplasia plan: The patient was seen and evaluated Chest x-ray, CAT scan, labs and medications reviewed Currently stable and on 2 L nasal cannula Titrate the FiO2 as tolerated Continue diuretics Continue heparin drip Cardiology has been consulted Echocardiogram reviewed We will continue to follow and make further recommendations based on his clinical status I have personally seen and examined the patient, performed the documentation and the assessment and plan as written. Number of minutes spent on the visit: 20
[2022-09-17] MEDS: DOXAZOSIN 4 MG TAB PO SCH (19:41)
[2022-09-17] MEDS: FINASTERIDE 5 MG TAB PO SCH (19:41)
--- NOTE | 2022-09-17 19:44 | P.HPIM ---
History of Present Illness H&P Date: 09/17/22 Chief Complaint: Shortness of breath 76-year-old man brought here by EMS. They had been called to [facility] for an individual who was having shortness of breath. The patient was very anxious and not able to give them any history. On arrival, the patient is very dyspneic just keeps repeating that he needs to pee. He did deny chest pain, but he is not able to give any other history due to severe dyspnea. On arrival patient was hypotensive with blood pressure 200s/100s he was also tachycardiac and tachypnea. He was started on IV nitroglycerin and BiPAP. He was stabilized, eventually weaned to nasal cannula. His BP has improved. Initial troponin was negative. He denies any history of CAD, AL, Stroke, diabetes, seizures. EKG reveals sinus tachycardia, HR 111, ST depression noted in V4, V5, V6, I, aVL, II and aVF. Prior EKG similar but patient not as tachycardic Echocardiogram revealed EF 55%, mild mitral regurgitation, mild tricuspid regurgitation Telemetry tracings indicate sinus rhythm CTA chest reveal negative for pulmonary embolism, severe lung Abnormalities bilaterally, likely advanced pulmonary edema. Chest x-ray with bilateral infiltrates noted pneumonia versus pulmonary edema. Laboratory reviewed, CBC 10.2, hemoglobin 11.1, platelets 224, sodium 140, potassium 3.4, BUN 21, serum current 0.7, troponin negative, proBNP 1010, COVID- 19 negative, influenza negative Review of Systems CONSTITUTIONAL: Denies fever or chills. CARDIOVASCULAR: Denies chest pain, +shortness of breath, Denies orthopnea, PND or palpitations. RESPIRATORY: Denies cough. GASTROINTESTINAL: Denies abdominal pain, diarrhea, constipation, nausea or vomiting. MUSCULOSKELETAL: Denies myalgias. NEUROLOGIC: Denies numbness, tingling, headacbe or weakness. ENDOCRINE: Denies fatigue, weight change, polydipsia or polyurina. GENITOURINARY: Denies burning, hematuria or urgency with micturation. HEMATOLOGIC: Denies history of anemia or bleeding. 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 Past Psychological History: No Psychological Hx Reported Smoking Status: Former smoker Past Alcohol Use History: None Reported Past Drug Use History: None Reported - Past Family History Mother Family Medical History: Diabetes Mellitus Father Family Medical History: Unable to Obtain Medications and Allergies Home Medications Medication Instructions Recorded Confirmed Type Finasteride [Proscar] 5 mg PO HS 10/16/20 09/16/22 History Terazosin HCl 5 mg PO HS 10/16/20 09/16/22 History HYDROcodone/APAP 7.5-325MG [[place] 1 tab PO TID PRN 03/15/22 09/16/22 History 7.5-325] lisinopriL [Zestril] 20 mg PO HS 30 Days #30 tab 03/15/22 09/16/22 Rx Allergies Allergy/AdvReac Type Severity Reaction Status Date / Time milk AdvReac Nausea & Verified 09/16/22 16:42 Vomiting & Diarrhea Physical Exam Vitals: Vital Signs Temp Pulse Resp BP Pulse Ox FiO2 09/17/22 12:40 77 18 142/71 99 09/17/22 08:38 97.7 F 82 20 138/73 97 09/17/22 05:59 68 16 144/64 96 09/17/22 04:52 96 09/17/22 03:29 40 09/16/22 23:52 88 19 136/65 99 09/16/22 22:59 40 09/16/22 19:24 40 09/16/22 19:23 50 09/16/22 19:00 100 09/16/22 17:45 77 22 139/73 100 09/16/22 16:20 87 24 84/56 100 09/16/22 16:00 78 22 112/80 100 09/16/22 15:35 100 09/16/22 15:32 102 H 28 H 126/80 98 09/16/22 15:28 103 H 40 H 216/120 98 09/16/22 15:25 100 Intake and Output 09/16/22 09/17/22 09/17/22 22:59 06:59 14:59 Intake Total 1.4 Balance 1.4 Intake: Intake, IV Titration 1.4 Amount Nitroglycerin-D5w Pmx 50 1.4 mg In Dextrose/Water 1 250ml.bag @ 5 MCG/MIN 1.5 mls/hr IV .Q24H ONE Rx#: [id number] Other: Weight 63.503 kg Blood pressure 130/73, heart rate 82, afebrile, saturations 97% on 3 L nasal cannula CONSTITUTIONAL: No apparent distress. HEENT: Head is normocephalic. Pupils are equal, round. Sclerae anicteric. Mucous membranes of the mouth are moist. No JVD. No carotid bruit. CHEST EXAMINATION: Lungs are clear to auscultation. No chest wall tenderness is noted on palpation or with deep breathing. HEART EXAMINATION: Regular rate and rhythm. S1, S2 heard. No murmurs, gallops or rub. ABDOMEN: Soft, nontender. Positive bowel sounds. EXTREMITIES: 2+ peripheral pulses, no lower extremity edema and no calf tenderness. NEUROLOGIC EXAMINATION: Patient is awake, alert and oriented x3. Results CBC & Chem 7: 09/17/22 05:27 09/17/22 05:27 Labs: Abnormal Lab Results - Last 24 Hours (Table) 09/16/22 09/16/22 09/16/22 Range/Units 15:55 15:55 15:55 RBC 4.08 L (4.30-5.90) m/uL Hgb (13.0-17.5) gm/dL Hct (39.0-53.0) % MCV 102.5 H (80.0-100.0) fL Neutrophils # (1.3-7.7) k/uL Lymphocytes # (1.0-4.8) k/uL D-Dimer 1.52 H (<0.60) mg/L FEU Potassium 3.3 L (3.5-5.1) mmol/L Chloride (98-107) mmol/L BUN (9-20) mg/dL Glucose 214 H (74-99) mg/dL Plasma Lactic Acid Solo (0.7-2.0) mmol/L Calcium 8.3 L (8.4-10.2) mg/dL AST 62 H (17-59) U/L ALT 56 H (4-49) U/L 09/16/22 09/16/22 09/17/22 Range/Units 15:55 20:19 05:27 RBC 3.39 L (4.30-5.90) m/uL Hgb 11.1 L (13.0-17.5) gm/dL Hct 33.9 L (39.0-53.0) % MCV (80.0-100.0) fL Neutrophils # 8.7 H (1.3-7.7) k/uL Lymphocytes # 0.8 L (1.0-4.8) k/uL D-Dimer (<0.60) mg/L FEU Potassium (3.5-5.1) mmol/L Chloride (98-107) mmol/L BUN (9-20) mg/dL Glucose (74-99) mg/dL Plasma Lactic Acid [place] 6.2 H* 2.7 H* (0.7-2.0) mmol/L Calcium (8.4-10.2) mg/dL AST (17-59) U/L ALT (4-49) U/L 09/17/22 Range/Units 05:27 RBC (4.30-5.90) m/uL Hgb (13.0-17.5) gm/dL Hct (39.0-53.0) % MCV (80.0-100.0) fL Neutrophils # (1.3-7.7) k/uL Lymphocytes # (1.0-4.8) k/uL D-Dimer (<0.60) mg/L FEU Potassium 3.4 L (3.5-5.1) mmol/L Chloride 108 H (98-107) mmol/L BUN 21 H (9-20) mg/dL Glucose (74-99) mg/dL Plasma Lactic Acid Solo (0.7-2.0) mmol/L Calcium 8.0 L (8.4-10.2) mg/dL AST (17-59) U/L ALT (4-49) U/L Assessment and Plan Assessment: 1. Acute onset dyspnea; likely related to hypertensive urgency versus significant LVH versus acute exacerbation CHF - Patient is currently on O2 at 2 L per nasal cannula with plans to titrate FiO2 as needed - Patient has been evaluated by cardiology and recommending to monitor EKG and trend troponin; 2-D echocardiogram and lipid panel is ordered 2. Hypertensive emergency; patient was initially treated with IV nitroglycerin which has been discontinued; cardiology recommending to restart home dose of lisinopril 20 mg daily which was discontinued for some time prior to presenting to Hospital; further recommendation pending patient's response to treatment 3. Acute exacerbation CHF with preserved EF; placed on IV Lasix, 40 mg daily, with plans to transition in 24 hours pending clinical course; monitor strict JASON's, daily weights, renal function and electrolytes; low-salt and fluid restricted diet; IV nitroglycerin is discontinued 4. Elevated troponin; cardiology recommending to trend troponin and monitor EKG; patient has been placed on IV heparin infusion; echocardiogram is ordered with plans for further recommendations once results are available 5. BPH; continue with home dose of Proscar; continue with [place] 4 mg by mouth daily at bedtime DVT prophylaxis; SCDs/IV heparin CODE STATUS; full code
[2022-09-17] MEDS: SODIUM CHLORIDE 0.9% 1,000 ML IV SCH (21:57)
[2022-09-18 05:54] LABS: Glucose,Whole Blood 99 mg/dL (70-110)
--- NOTE | 2022-09-18 06:15 | P.PN ---
Subjective Progress Note Date: 09/18/22 Principal diagnosis: Hypertension emergency The patient is a 76-year-old gentleman with a past medical history significant for hypertension who presented to the hospital with increasing shortness of breath and he was diagnosed with hypertension crisis/hypertension emergency comp licated with heart failure. Further investigation was done including an echo which revealed normal left ventricle systolic function. Also the patient was found to have mildly abnormal troponin which is likely related to hypertension emergency. September [id number] The patient was seen and evaluated this morning. He is feeling better indeterminable shortness of breath. He has been diuresing very well. No symptoms of chest pain or chest discomfort and no dizziness or lightheadedness or feeling of heart racing or fluttering or presyncope or syncope. He is on aspirin and he is on heparin. I'm going to add carvedilol to the current medical regimen and if he is also on lisinopril. I would advise continue the current medical regimen at this point. Continue heparin IV for additional 24 hours. Follow-up with the patient. I would continue the IV Lasix for at least additional 24 hours giving that he still wheezing. Objective - Vital Signs Vital signs: Vital Signs Temp 98.2 F 09/18/22 04:00 Pulse 83 09/18/22 04:00 Resp 19 09/18/22 04:00 BP 147/77 09/18/22 04:00 Pulse Ox 97 09/18/22 04:00 FiO2 40 09/17/22 03:29 Intake & Output 09/17/22 09/17/22 09/18/22 06:59 18:59 06:59 Intake Total 118 Output Total 300 Balance -182 Intake: Oral 118 Output: Urine 300 Other: Voiding Method Toilet Urinal - Constitutional General appearance: Present: no acute distress - Respiratory Respiratory: bilateral: wheezing - Cardiovascular Rhythm: regular - Labs CBC & Chem 7: 09/17/22 05:27 09/17/22 05:27 Labs: Abnormal Lab Results - Last 24 Hours (Table) 09/17/22 09/17/22 09/17/22 Range/Units 05:27 05:27 09:17 RBC 3.39 L (4.30-5.90) m/uL Hgb 11.1 L (13.0-17.5) gm/dL Hct 33.9 L (39.0-53.0) % Neutrophils # 8.7 H (1.3-7.7) k/uL Lymphocytes # 0.8 L (1.0-4.8) k/uL APTT (22.0-30.0) sec Potassium 3.4 L (3.5-5.1) mmol/L Chloride 108 H (98-107) mmol/L BUN 21 H (9-20) mg/dL Calcium 8.0 L (8.4-10.2) mg/dL Troponin I 0.748 H* (0.000-0.034) ng/mL 09/17/22 09/17/22 Range/Units 13:00 18:44 RBC (4.30-5.90) m/uL Hgb (13.0-17.5) gm/dL Hct (39.0-53.0) % Neutrophils # (1.3-7.7) k/uL Lymphocytes # (1.0-4.8) k/uL APTT 46.3 H (22.0-30.0) sec Potassium (3.5-5.1) mmol/L Chloride (98-107) mmol/L BUN (9-20) mg/dL Calcium (8.4-10.2) mg/dL Troponin I 0.644 H* (0.000-0.034) ng/mL Assessment and Plan Assessment: Assessment #1 hypertension emergency #2 heart failure exacerbation secondary to heart failure with preserved ejection fraction #3 history of noncompliance with medications Plan #1 continue IV Lasix for additional 24 hours #2 continue monitor the kidney function and electrolytes #3 add carvedilol to the current medical regimen Follow-up with the patient
[2022-09-18] MEDS ORDERED: FUROSEMIDE 10 MG/ML 4 ML VIAL IV SCH (09:00)
[2022-09-18] MEDS: FAMOTIDINE 20 MG TAB PO SCH ×2 (09:00→20:58)
[2022-09-18] MEDS: ASPIRIN 81 MG PO SCH (09:00)
[2022-09-18] MEDS: FUROSEMIDE 10 MG/ML 4 ML VIAL IV SCH (09:01)
[2022-09-18] MEDS: HYDROcodone/APAP 7.5-325MG 1 EACH TAB PO PRN ×2 (09:01→17:40)
[2022-09-18] MEDS: lisinopriL 20 MG TAB PO SCH (09:01)
[2022-09-18] MEDS: carvediloL 3.125 MG TAB PO SCH ×2 (09:01→15:47)
[2022-09-18 10:01] LABS: Basophils % (A) 0 %; Eosinophils # (A) 0.1 k/uL (0-0.7); Eosinophils % (A) 1 %; HCT 36.6 % (39.0-53.0); HGB 12.2 gm/dL (13.0-17.5); Lymphocytes # (A) 0.8 k/uL (1.0-4.8); Lymphocytes % (A) 10 %; MCH 33.7 pg (25.0-35.0); MCHC 33.4 g/dL (31.0-37.0); MCV 100.9 fL (80.0-100.0); Mean Platelet Volume 9.8; Monocytes # (A) 0.4 k/uL (0-1.0); Monocytes % (A) 5 %; Neutrophils # (A) 6.5 k/uL (1.3-7.7); Neutrophils % (A) 82 %; Platelet Count 190 k/uL (150-450); RBC 3.63 m/uL (4.30-5.90); RDW 12.3 % (11.5-15.5); WBC 7.9 k/uL (3.8-10.6)
[2022-09-18 10:10] LABS: Prothrombin Time 10.3 sec (9.0-12.0)
[2022-09-18 10:14] LABS: African American GFR (CKD) >90 (>60 ml/min/1.73 sqM); Anion Gap 8 mmol/L; Blood Urea Nitrogen 20 mg/dL (9-20); Calcium 8.6 mg/dL (8.4-10.2); Carbon Dioxide 28 mmol/L (22-30); Chloride 103 mmol/L (98-107); Glucose 99 mg/dL (74-99); Non-African American GFR(CKD) >90 (>60 ml/min/1.73 sqM); Potassium 3.7 mmol/L (3.5-5.1); Sodium 139 mmol/L (137-145)
--- NOTE | 2022-09-18 13:29 | P.PN ---
Subjective Progress Note Date: 09/18/22 Principal diagnosis: Shortness of breath, hypertensive urgency. This is a pleasant 76-year-old male patient who follows with Dr. Sawant as his primary care provider. He has a history of hypertension, BPH. He was brought in by EMS yesterday with a rather acute episode of shortness of breath. he was seen initially in hypertensive urgency with a blood pressure 216/120. Started on a nitroglycerin drip. Chest x-ray revealed perihilar basilar infiltrates suspect pneumonia versus pulmonary edema. CT angiogram ruled out pulmonary embolism. There was increased attenuation throughout the lungs bilaterally, widespread groundglass opacity pattern consistent with interstitial and alveolar pulmonary edema. White count 10.2. Hemoglobin 11.1. Platelet count 224. Sodium 140. Potassium 3.4. Bicarb 27. BUN 21. Creatinine 0.71. initial troponin 0.027. Currently 0.644. ProBNP 1010. Brown virus and influenza screen negative. Echocardiogram did reveal evidence of left ventricular hypertrophy. Preserved left ventricular systolic function with ejection fraction of 55%. No significant valvular abnormalities. He is seen today in consultation in the emergency department. He is currently sitting up on the stretcher. Awake and alert in no acute distress. States he is breathing quite a bit better today compared to yesterday. He is maintaining O2 saturations up to 100% on 2 L/m per nasal cannula. He is afebrile. The pressure improved and nitroglycerin drip is currently off. He remains on heparin drip. He remains on IV diuretics. Progress note dated 09/18/2022. This is a 76-year-old male seen in room 375. Yesterday, he was seen in the emergency room. He came into the emergency department with significant shortness of breath, and hypertensive emergency/urgency. He responded to BiPAP therapy, diuretics, and IV nitroglycerin. Currently he is getting saline at 50 mL an hour, and IV heparin. He is on room air. He is scheduled to have a cardiac catheterization tomorrow. White count 7.9, hemoglobin 12.2, hematocrit 36.6, and platelet count 290,000. PTT is 37. Sodium 139, potassium 3.7, chlorides 103, CO2 28, BUN 20, creatinine 0.63. Objective - Vital Signs Vital signs: Vital Signs Temp 98.2 F 09/18/22 08:56 Pulse 84 12/10/22 13:08 Resp 18 09/18/22 11:23 BP 131/63 09/18/22 11:23 Pulse Ox 97 09/18/22 11:23 FiO2 21 09/18/22 09:09 Intake & Output 09/17/22 09/18/22 09/18/22 18:59 06:59 18:59 Intake Total 118 392.654 Output Total 300 450 700 Balance -182 -450 -307.346 Intake: Intake, IV Titration 152.654 Amount Heparin Sod,Pork in 0.45% 152.654 NaCl 25,000 unit In 0.45 % NaCl 1 250ml.bag @ 12 UNITS/KG/HR 7.62 mls/hr IV .Q24H [facility] Rx#: [id number] Oral 118 240 Output: Urine 300 450 700 Other: Voiding Method Toilet Toilet Urinal Urinal # Voids 3 - Exam No acute distress, oriented 3. Currently on room air. No respiratory distress. HEENT examination is grossly unremarkable. Neck supple. Full range of motion. No adenopathy thyromegaly or neck vein distention. Cardiovascular examination reveals regular rhythm rate. S1-S2 normal. No S3 or S4. No discernible murmur noted. Heart rate 84 bpm. Lungs reveal clear breath sounds. Breath sounds are equal bilaterally. No a dventitious lung sounds including wheezes rhonchi or crackles. Saturations are 97% on room air. Abdomen soft bowel sounds are heard. No masses or tenderness. Extremities are intact. No cyanosis clubbing or edema. Skin is without rash or lesion. Neurologic examination is brief but nonfocal. - Labs CBC & Chem 7: 09/18/22 09:16 09/18/22 09:16 Labs: Abnormal Lab Results - Last 24 Hours (Table) 09/17/22 09/17/22 09/18/22 Range/Units 13:00 18:44 09:16 RBC (4.30-5.90) m/uL Hgb (13.0-17.5) gm/dL Hct (39.0-53.0) % MCV (80.0-100.0) fL Lymphocytes # (1.0-4.8) k/uL APTT 46.3 H (22.0-30.0) sec Creatinine 0.63 L (0.66-1.25) mg/dL Troponin I 0.644 H* (0.000-0.034) ng/mL 09/18/22 09/18/22 Range/Units 09:16 09:16 RBC 3.63 L (4.30-5.90) m/uL Hgb 12.2 L (13.0-17.5) gm/dL Hct 36.6 L (39.0-53.0) % MCV 100.9 H (80.0-100.0) fL Lymphocytes # 0.8 L (1.0-4.8) k/uL APTT 37.0 H (22.0-30.0) sec Creatinine (0.66-1.25) mg/dL Troponin I (0.000-0.034) ng/mL Assessment and Plan Assessment: Acute dyspnea secondary to hypertensive urgency and pulmonary edema with significant left ventricular hypertrophy and preserved left ventricular systolic function. Hypertension. Troponin leak. Benign prostatic hyperplasia. Plan: Plan dated 09/18/2022. The patient is seen in room 375. He is comfortable. He is on room air. He is getting IV heparin. He's also on saline at 50 mL an hour. According to the nurse, they're planning to do a cardiac catheterization on September 19. We will continue to follow make recommendations along the way. Respiratory status is currently stable. Time with Patient: Less than 30
[2022-09-18] MEDS: HEPARIN SOD,PORK IN 0.45% NACL 25,000 UNIT in 0.45% NACL 1 250ML.BAG IV SCH (15:46)
[2022-09-18] MEDS: SODIUM CHLORIDE 0.9% 1,000 ML IV SCH (15:47)
[2022-09-18 16:23] LABS: Chol/HDL Ratio 3.01 Ratio; LDL Cholesterol,Calculated 106.3 mg/dL (0.0-131.0)
[2022-09-18] MEDS: FINASTERIDE 5 MG TAB PO SCH (20:58)
[2022-09-18] MEDS: DOXAZOSIN 4 MG TAB PO SCH (20:58)
[2022-09-19] MEDS: HYDROcodone/APAP 7.5-325MG 1 EACH TAB PO PRN ×4 (00:52→21:51)
[2022-09-19 05:49] LABS: Glucose,Whole Blood 99 mg/dL (70-110)
--- NOTE | 2022-09-19 06:30 | P.PN ---
Subjective Progress Note Date: 09/19/22 Principal diagnosis: Hypertension emergency The patient is a 76-year-old gentleman with a past medical history significant for hypertension who presented to the hospital with increasing shortness of breath and he was diagnosed with hypertension crisis/hypertension emergency comp licated with heart failure. Further investigation was done including an echo which revealed normal left ventricle systolic function. Also the patient was found to have mildly abnormal troponin which is likely related to hypertension emergency. September 182021 The patient was seen and evaluated this morning. He is feeling better indeterminable shortness of breath. He has been diuresing very well. No symptoms of chest pain or chest discomfort and no dizziness or lightheadedness or feeling of heart racing or fluttering or presyncope or syncope. He is on aspirin and he is on heparin. I'm going to add carvedilol to the current medical regimen and if he is also on lisinopril. I would advise continue the current medical regimen at this point. Continue heparin IV for additional 24 hours. Follow-up with the patient. I would continue the IV Lasix for at least additional 24 hours giving that he still wheezing. September 192021 The patient was seen and evaluated this morning. He is feeling overall better. The shortness of breath has improved significantly. No lower extremity edema. He has been maintaining normal saturation on room air. On examination he is euvolemic with clear breathing sounds bilaterally and no lower extremity edema noted as well. No symptoms of chest pain or chest discomfort. I'm going to stop the Lasix IV and switched into Lasix by mouth. The pressure has been also improved significantly on the current medical regimen. From the cardiac summer dpoint of view, the patient can be discharged home in the next 12-24 hours. The echo was reviewed and showed preserved biventricular systolic function was mild left ventricular hypertrophy/hypertensive heart disease. Objective - Vital Signs Vital signs: Vital Signs Temp 97.7 F 09/19/22 04:00 Pulse 69 09/19/22 04:00 Resp 18 09/19/22 04:00 BP 144/74 09/19/22 04:00 Pulse Ox 98 09/19/22 04:00 FiO2 21 09/18/22 09:09 Intake & Output 09/18/22 09/18/22 09/19/22 06:59 18:59 06:59 Intake Total 697.699 Output Total 450 900 350 Balance -450 -202.301 -350 Weight 71.8 kg Intake: Intake, IV Titration 217.699 Amount Heparin Sod,Pork in 0.45% 217.699 NaCl 25,000 unit In 0.45 % NaCl 1 250ml.bag @ 12 UNITS/KG/HR 7.62 mls/hr IV .Q24H REPLACED [facility] Rx#: [id number] Oral 480 Output: Urine 450 900 350 Other: Voiding Method Toilet Toilet Urinal Urinal # Voids 3 - Constitutional General appearance: Present: no acute distress - Respiratory Respiratory: bilateral: CTA - Cardiovascular Rhythm: regular - Labs CBC & Chem 7: 09/18/22 09:16 09/18/22 09:16 Labs: Abnormal Lab Results - Last 24 Hours (Table) 09/18/22 09/18/22 09/18/22 Range/Units 09:16 09:16 09:16 RBC 3.63 L (4.30-5.90) m/uL Hgb 12.2 L (13.0-17.5) gm/dL Hct 36.6 L (39.0-53.0) % MCV 100.9 H (80.0-100.0) fL Lymphocytes # 0.8 L (1.0-4.8) k/uL APTT (22.0-30.0) sec Creatinine 0.63 L (0.66-1.25) mg/dL HDL Cholesterol 65.10 H (40.00-60.00) mg/dL 09/18/22 09/18/22 09/18/22 Range/Units 09:16 16:06 23:04 RBC (4.30-5.90) m/uL Hgb (13.0-17.5) gm/dL Hct (39.0-53.0) % MCV (80.0-100.0) fL Lymphocytes # (1.0-4.8) k/uL APTT 37.0 H 36.5 H 51.9 H (22.0-30.0) sec Creatinine (0.66-1.25) mg/dL HDL Cholesterol (40.00-60.00) mg/dL Assessment and Plan Assessment: Assessment #1 hypertension crisis/hypertension emergency complicated by heart failure #2 heart failure exacerbation secondary to heart failure with preserved ejection fraction #3 history of noncompliance with medications Plan #1 DC heparin IV #2 continue the current medical regimen with aspirin and beta reanna #3 DC Lasix IV and start the patient on Lasix by mouth #4 the patient can be discharged in the next 12-24 hours
[2022-09-19] MEDS: carvediloL 3.125 MG TAB PO SCH ×2 (06:31→17:07)
[2022-09-19] MEDS: FAMOTIDINE 20 MG TAB PO SCH ×2 (07:35→21:51)
[2022-09-19] MEDS: ASPIRIN 81 MG PO SCH (07:35)
[2022-09-19] MEDS: lisinopriL 20 MG TAB PO SCH (07:35)
[2022-09-19] MEDS: FUROSEMIDE 40 MG TAB PO SCH (07:36)
[2022-09-19] MEDS: SODIUM CHLORIDE 0.9% 1,000 ML IV SCH (07:36)
--- NOTE | 2022-09-19 10:26 | XR ---
EXAMINATION TYPE: XR chest 2V DATE OF EXAM: 09/19/2022 COMPARISON: 09/16/2022 HISTORY: Shortness of breath TECHNIQUE: Frontal and lateral views of the chest are obtained. FINDINGS: Scattered senescent parenchymal changes noted. Hyperinflation compatible with COPD. Resolution of pulmonary edema. Small right pleural effusion residual is noted. Heart size is stable. Mediastinal structures are stable and grossly unremarkable. No evidence for hilar prominence. Degenerative changes dorsal spine. IMPRESSION: 1. Resolution of pulmonary edema. Small right pleural effusion residual is noted.
--- NOTE | 2022-09-19 12:04 | P.PN ---
Subjective Progress Note Date: 09/19/22 Principal diagnosis: Shortness of breath, hypertensive urgency. This is a pleasant 76-year-old male patient who follows with Dr. Sawant as his primary care provider. He has a history of hypertension, BPH. He was brought in by EMS yesterday with a rather acute episode of shortness of breath. he was seen initially in hypertensive urgency with a blood pressure 216/120. Started on a nitroglycerin drip. Chest x-ray revealed perihilar basilar infiltrates suspect pneumonia versus pulmonary edema. CT angiogram ruled out pulmonary embolism. There was increased attenuation throughout the lungs bilaterally, widespread groundglass opacity pattern consistent with interstitial and alveolar pulmonary edema. White count 10.2. Hemoglobin 11.1. Platelet count 224. Sodium 140. Potassium 3.4. Bicarb 27. BUN 21. Creatinine 0.71. initial troponin 0.027. Currently 0.644. ProBNP 1010. Brown virus and influenza screen negative. Echocardiogram did reveal evidence of left ventricular hypertrophy. Preserved left ventricular systolic function with ejection fraction of 55%. No significant valvular abnormalities. He is seen today in consultation in the emergency department. He is currently sitting up on the stretcher. Awake and alert in no acute distress. States he is breathing quite a bit better today compared to yesterday. He is maintaining O2 saturations up to 100% on 2 L/m per nasal cannula. He is afebrile. The pressure improved and nitroglycerin drip is currently off. He remains on heparin drip. He remains on IV diuretics. Progress note dated 09/18/2022. This is a 76-year-old male seen in room 375. Yesterday, he was seen in the emergency room. He came into the emergency department with significant shortness of breath, and hypertensive emergency/urgency. He responded to BiPAP therapy, diuretics, and IV nitroglycerin. Currently he is getting saline at 50 mL an hour, and IV heparin. He is on room air. He is scheduled to have a cardiac catheterization tomorrow. White count 7.9, hemoglobin 12.2, hematocrit 36.6, and platelet count 290,000. PTT is 37. Sodium 139, potassium 3.7, chlorides 103, CO2 28, BUN 20, creatinine 0.63. Progress note dated 09/19/2022. 76-year-old male, seen in room 375. The patient does not need a heart catheteri zation. Yesterday, we were told that he is going to have one today. He is currently not receiving any IV fluids. He is on room air. Saturations are 96%. According to his nurse, the patient does get short of breath with exertion, for example, going to the bathroom. Today's chest x-ray, is much improved, and shows resolution of the patient's CHF, with residual small right-sided effusion. No new laboratory data today other than a PTT of 43. Objective - Vital Signs Vital signs: Vital Signs Temp 98.3 F 09/19/22 07:25 Pulse 73 09/19/22 07:25 Resp 18 09/19/22 07:25 BP 149/66 09/19/22 07:25 Pulse Ox 96 09/19/22 08:07 FiO2 21 09/18/22 09:09 Intake & Output 09/18/22 09/19/22 09/19/22 18:59 06:59 18:59 Intake Total 697.699 Output Total 900 350 Balance -202.301 -350 Weight 71.8 kg Intake: Intake, IV Titration 217.699 Amount Heparin Sod,Pork in 0.45% 217.699 NaCl 25,000 unit In 0.45 % NaCl 1 250ml.bag @ 12 UNITS/KG/HR 7.62 mls/hr IV .Q24H [facility] Rx#: [id number] Oral 480 Output: Urine 900 350 Other: Voiding Method Toilet Toilet Toilet Urinal Urinal Urinal - Exam No acute distress, oriented 3. Currently on room air. No respiratory distress. HEENT examination is grossly unremarkable. Neck supple. Full range of motion. No adenopathy thyromegaly or neck vein distention. Cardiovascular examination reveals regular rhythm rate. S1-S2 normal. No S3 or S4. No discernible murmur noted. Heart rate 73 bpm. Lungs reveal clear breath sounds. Breath sounds are equal bilaterally. No adventitious lung sounds including wheezes rhonchi or crackles. Saturations are 96 % on room air. Abdomen soft bowel sounds are heard. No masses or tenderness. Extremities are intact. No cyanosis clubbing or edema. Skin is without rash or lesion. Neurologic examination is brief but nonfocal. - Labs CBC & Chem 7: 09/18/22 09:16 09/18/22 09:16 Labs: Abnormal Lab Results - Last 24 Hours (Table) 09/18/22 09/18/22 09/18/22 Range/Units 09:16 16:06 23:04 APTT 36.5 H 51.9 H (22.0-30.0) sec HDL Cholesterol 65.10 H (40.00-60.00) mg/dL 09/19/22 Range/Units 06:46 APTT 43.0 H (22.0-30.0) sec HDL Cholesterol (40.00-60.00) mg/dL Assessment and Plan Assessment: Acute dyspnea secondary to hypertensive urgency and pulmonary edema with significant left ventricular hypertrophy and preserved left ventricular systolic function. Hypertension. Troponin leak. Benign prostatic hyperplasia. Plan: Plan dated 09/18/2022. The patient is seen in room 375. He is comfortable. He is on room air. He is getting IV heparin. He's also on saline at 50 mL an hour. According to the nurse, they're planning to do a cardiac catheterization on September 19. We will continue to follow make recommendations along the way. Respiratory status is currently stable. Plan dated 09/19/2022. The patient is again seen in room 375. He appears very comfortable. Not receiving any IV fluids. No supplemental oxygen. Saturations are 96% on room air. Chest x-ray shows improvement of the patient's fluid overload. There is a residual small right-sided effusion. We will continue to follow make recommendations along the way. Prognosis is guarded. Time with Patient: Less than 30
--- NOTE | 2022-09-19 14:35 | P.PN ---
Subjective Progress Note Date: 09/18/22 76-year-old man brought here by EMS. They had been called to [place] for an individual who was having shortness of breath. The patient was very anxious and not able to give them any history. On arrival, the patient is very dyspneic just keeps repeating that he needs to pee. He did deny chest pain, but he is not able to give any other history due to severe dyspnea. On arrival patient was hypotensive with blood pressure 200s/100s he was also tachycardiac and tachypnea. He was started on IV nitroglycerin and BiPAP. He was stabilized, eventually weaned to nasal cannula. His BP has improved. Initial troponin was negative. He denies any history of CAD, MS, Stroke, diabetes, seizures. EKG reveals sinus tachycardia, HR 111, ST depression noted in V4, V5, V6, I, aVL, II and aVF. Prior EKG similar but patient not as tachycardic Echocardiogram revealed EF 55%, mild mitral regurgitation, mild tricuspid regurgitation Telemetry tracings indicate sinus rhythm CTA chest reveal negative for pulmonary embolism, severe lung Abnormalities bilaterally, likely advanced pulmonary edema. Chest x-ray with bilateral infiltrates noted pneumonia versus pulmonary edema. Laboratory reviewed, CBC 10.2, hemoglobin 11.1, platelets 224, sodium 140, potassium 3.4, BUN 21, serum current 0.7, troponin negative, proBNP 1010, COVID- 19 negative, influenza negative Objective - Vital Signs Vital signs: Vital Signs Temp 98.2 F 09/18/22 08:56 Pulse 84 09/18/22 11:23 Resp 18 09/18/22 11:23 BP 131/63 09/18/22 11:23 Pulse Ox 97 09/18/22 11:23 FiO2 21 09/18/22 09:09 Intake & Output 09/17/22 09/18/22 09/18/22 18:59 06:59 18:59 Intake Total 118 152.654 Output Total 300 450 Balance -182 -450 152.654 Intake: Intake, IV Titration 152.654 Amount Heparin Sod,Pork in 0.45% 152.654 NaCl 25,000 unit In 0.45 % NaCl 1 250ml.bag @ 12 UNITS/KG/HR 7.62 mls/hr IV .Q24H [facility] Rx#: [id number] Oral 118 Output: Urine 300 450 Other: Voiding Method Toilet Toilet Urinal Urinal # Voids 3 - Exam Blood pressure 130/73, heart rate 82, afebrile, saturations 97% on 3 L nasal cannula CONSTITUTIONAL: No apparent distress. HEENT: Head is normocephalic. Pupils are equal, round. Sclerae anicteric. Mucous membranes of the mouth are moist. No JVD. No carotid bruit. CHEST EXAMINATION: Lungs are clear to auscultation. No chest wall tenderness is noted on palpation or with deep breathing. HEART EXAMINATION: Regular rate and rhythm. S1, S2 heard. No murmurs, gallops or rub. ABDOMEN: Soft, nontender. Positive bowel sounds. EXTREMITIES: 2+ peripheral pulses, no lower extremity edema and no calf t enderness. NEUROLOGIC EXAMINATION: Patient is awake, alert and oriented x3. - Labs CBC & Chem 7: 09/18/22 09:16 09/18/22 09:16 Labs: Abnormal Lab Results - Last 24 Hours (Table) 09/17/22 09/17/22 09/17/22 Range/Units 09:17 13:00 18:44 RBC (4.30-5.90) m/uL Hgb (13.0-17.5) gm/dL Hct (39.0-53.0) % MCV (80.0-100.0) fL Lymphocytes # (1.0-4.8) k/uL APTT 46.3 H (22.0-30.0) sec Creatinine (0.66-1.25) mg/dL Troponin I 0.748 H* 0.644 H* (0.000-0.034) ng/mL 09/18/22 09/18/22 09/18/22 Range/Units 09:16 09:16 09:16 RBC 3.63 L (4.30-5.90) m/uL Hgb 12.2 L (13.0-17.5) gm/dL Hct 36.6 L (39.0-53.0) % MCV 100.9 H (80.0-100.0) fL Lymphocytes # 0.8 L (1.0-4.8) k/uL APTT 37.0 H (22.0-30.0) sec Creatinine 0.63 L (0.66-1.25) mg/dL Troponin I (0.000-0.034) ng/mL Assessment and Plan Assessment: 1. Acute onset dyspnea; likely related to hypertensive urgency versus si gnificant LVH versus acute exacerbation CHF - Patient is currently on O2 at 2 L per nasal cannula with plans to titrate FiO2 as needed - Patient has been evaluated by cardiology and recommending to monitor EKG and trend troponin; 2-D echocardiogram and lipid panel is ordered 2. Hypertensive emergency; patient was initially treated with IV nitroglycerin which has been discontinued; cardiology recommending to restart home dose of lisinopril 20 mg daily which was discontinued for some time prior to presenting to Hospital; further recommendation pending patient's response to treatment 3. Acute exacerbation CHF with preserved EF; placed on IV Lasix, 40 mg daily, with plans to transition in 24 hours pending clinical course; monitor strict JASON's, daily weights, renal function and electrolytes; low-salt and fluid restricted diet; IV nitroglycerin is discontinued 4. Elevated troponin; cardiology recommending to trend troponin and monitor EKG; patient has been placed on IV heparin infusion; echocardiogram is ordered with plans for further recommendations once results are available 5. BPH; continue with home dose of Proscar; continue with Cardura 4 mg by mouth daily at bedtime DVT prophylaxis; SCDs/IV heparin CODE STATUS; full code
[2022-09-19 15:50] LABS: African American GFR (CKD) >90 (>60 ml/min/1.73 sqM); Anion Gap 5 mmol/L; Blood Urea Nitrogen 18 mg/dL (9-20); Calcium 8.8 mg/dL (8.4-10.2); Carbon Dioxide 30 mmol/L (22-30); Chloride 102 mmol/L (98-107); Glucose 108 mg/dL (74-99); Non-African American GFR(CKD) 87 (>60 ml/min/1.73 sqM); Potassium 3.9 mmol/L (3.5-5.1); Sodium 137 mmol/L (137-145)
[2022-09-19 15:58] LABS: Basophils % (A) 1 %; Eosinophils # (A) 0.2 k/uL (0-0.7); Eosinophils % (A) 2 %; HCT 34.9 % (39.0-53.0); HGB 11.6 gm/dL (13.0-17.5); Lymphocytes # (A) 1.1 k/uL (1.0-4.8); Lymphocytes % (A) 16 %; MCH 33.5 pg (25.0-35.0); MCHC 33.3 g/dL (31.0-37.0); MCV 100.5 fL (80.0-100.0); Mean Platelet Volume 10.9; Monocytes # (A) 0.7 k/uL (0-1.0); Monocytes % (A) 10 %; Neutrophils # (A) 4.6 k/uL (1.3-7.7); Neutrophils % (A) 68 %; Platelet Count 186 k/uL (150-450); RBC 3.47 m/uL (4.30-5.90); RDW 12.6 % (11.5-15.5); WBC 6.8 k/uL (3.8-10.6)
--- NOTE | 2022-09-19 18:17 | P.PN ---
Subjective Progress Note Date: 09/19/22 Principal diagnosis: Acute onset dyspnea related to hypertensive urgency and pulmonary edema Elevated troponin 76-year-old man brought here by EMS. They had been called to [place] for an individual who was having shortness of breath. The patient was very anxious and not able to give them any history. On arrival, the patient is very dyspneic just keeps repeating that he needs to pee. He did deny chest pain, but he is not able to give any other history due to severe dyspnea. On arrival patient was hypotensive with blood pressure 200s/100s he was also tachycardiac and tachypnea. He was started on IV nitroglycerin and BiPAP. He was stabilized, eventually weaned to nasal cannula. His BP has improved. Initial troponin was negative. He denies any history of CAD, [place], Stroke, diabetes, seizures. EKG reveals sinus tachycardia, HR 111, ST depression noted in V4, V5, V6, I, aVL, II and aVF. Prior EKG similar but patient not as tachycardic Echocardiogram revealed EF 55%, mild mitral regurgitation, mild tricuspid regurgitation Telemetry tracings indicate sinus rhythm CTA chest reveal negative for pulmonary embolism, severe lung Abnormalities bi laterally, likely advanced pulmonary edema. Chest x-ray with bilateral infiltrates noted pneumonia versus pulmonary edema. Laboratory reviewed, CBC 10.2, hemoglobin 11.1, platelets 224, sodium 140, po tassium 3.4, BUN 21, serum current 0.7, troponin negative, proBNP 1010, COVID-19 negative, influenza negative 09/19/2022 Patient is seen and evaluated in room at bedside; He is feeling overall better. The shortness of breath has improved significantly. No lower extremity edema. He has been maintaining normal saturation on room air. On examination he is euvolemic with clear breathing sounds bilaterally and no lower extremity edema noted as well. No symptoms of chest pain or chest discomfort. I'm going to stop the Lasix IV and switched into Lasix by mouth. The pressure has been also improved significantly on the current medical regimen. From the cardiac standp oint of view, the patient can be discharged home in the next 12-24 hours. The echo was reviewed and showed preserved biventricular systolic function was mild left ventricular hypertrophy/hypertensive heart disease. --- continue the current medical regimen with aspirin and beta reanna --- DC Lasix IV and start the patient on Lasix by mouth -- the patient can be discharged in the next 12-24 hours Objective - Vital Signs Vital signs: Vital Signs Temp 98.3 F 09/19/22 07:25 Pulse 71 09/19/22 11:03 Resp 18 09/19/22 11:03 BP 157/73 09/19/22 11:03 Pulse Ox 95 09/19/22 11:03 FiO2 21 09/18/22 09:09 Intake & Output 09/18/22 09/19/22 09/19/22 18:59 06:59 18:59 Intake Total 697.699 Output Total 900 350 700 Balance -202.301 -350 -700 Weight 71.8 kg Intake: Intake, IV Titration 217.699 Amount Heparin Sod,Pork in 0.45% 217.699 NaCl 25,000 unit In 0.45 % NaCl 1 250ml.bag @ 12 UNITS/KG/HR 7.62 mls/hr IV .Q24H [facility] Rx#: [id number] Oral 480 Output: Urine 900 350 700 Other: Voiding Method Toilet Toilet Toilet Urinal Urinal Urinal - Exam Blood pressure 130/73, heart rate 82, afebrile, saturations 97% on 3 L nasal cannula CONSTITUTIONAL: No apparent distress. HEENT: Head is normocephalic. Pupils are equal, round. Sclerae anicteric. Mucous membranes of the mouth are moist. No JVD. No carotid bruit. CHEST EXAMINATION: Lungs are clear to auscultation. No chest wall tenderness is noted on palpation or with deep breathing. HEART EXAMINATION: Regular rate and rhythm. S1, S2 heard. No murmurs, gallops or rub. ABDOMEN: Soft, nontender. Positive bowel sounds. EXTREMITIES: 2+ peripheral pulses, no lower extremity edema and no calf tenderness. NEUROLOGIC EXAMINATION: Patient is awake, alert and oriented x3. - Labs CBC & Chem 7: 09/19/22 15:11 09/19/22 15:11 Labs: Abnormal Lab Results - Last 24 Hours (Table) 09/18/22 09/18/22 09/18/22 Range/Units 09:16 16:06 23:04 APTT 36.5 H 51.9 H (22.0-30.0) sec HDL Cholesterol 65.10 H (40.00-60.00) mg/dL 09/19/22 Range/Units 06:46 APTT 43.0 H (22.0-30.0) sec HDL Cholesterol (40.00-60.00) mg/dL Assessment and Plan Assessment: 1. Acute onset dyspnea; likely related to hypertensive urgency versus significant LVH versus acute exacerbation CHF - Patient is currently on O2 at 2 L per nasal cannula with plans to titrate FiO2 as needed - Patient has been evaluated by cardiology and recommending to monitor EKG and trend troponin; 2-D echocardiogram and lipid panel is ordered 2. Hypertensive emergency; patient was initially treated with IV nitroglycerin which has been discontinued; cardiology recommending to restart home dose of lisinopril 20 mg daily which was discontinued for some time prior to presenting to Hospital; further recommendation pending patient's response to treatment 3. Acute exacerbation CHF with preserved EF; placed on IV Lasix, 40 mg daily, with plans to transition in 24 hours pending clinical course; monitor strict JASON's, daily weights, renal function and electrolytes; low-salt and fluid restricted diet; IV nitroglycerin is discontinued 4. Elevated troponin; cardiology recommending to trend troponin and monitor EKG; patient has been placed on IV heparin infusion; echocardiogram is ordered with plans for further recommendations once results are available 5. BPH; continue with home dose of Proscar; continue with Cardura 4 mg by mouth daily at bedtime DVT prophylaxis; SCDs/IV heparin CODE STATUS; full code
[2022-09-19] MEDS: FINASTERIDE 5 MG TAB PO SCH (21:51)
[2022-09-19] MEDS: DOXAZOSIN 4 MG TAB PO SCH (21:52)
[2022-09-20 00:47] VITALS: RESP 16
[2022-09-20] MEDS: carvediloL 3.125 MG TAB PO SCH (06:48)
[2022-09-20 08:02] LABS: Basophils % (A) 0 %; Eosinophils # (A) 0.1 k/uL (0-0.7); Eosinophils % (A) 2 %; HCT 35.5 % (39.0-53.0); HGB 11.7 gm/dL (13.0-17.5); Lymphocytes # (A) 0.8 k/uL (1.0-4.8); Lymphocytes % (A) 14 %; MCH 32.8 pg (25.0-35.0); MCHC 32.9 g/dL (31.0-37.0); MCV 99.9 fL (80.0-100.0); Mean Platelet Volume 9.7; Monocytes # (A) 0.4 k/uL (0-1.0); Monocytes % (A) 7 %; Neutrophils % (A) 72 %; Platelet Count 216 k/uL (150-450); RBC 3.55 m/uL (4.30-5.90); RDW 12.6 % (11.5-15.5); WBC 5.5 k/uL (3.8-10.6)
[2022-09-20 08:24] LABS: African American GFR (CKD) >90 (>60 ml/min/1.73 sqM); Anion Gap 7 mmol/L; Blood Urea Nitrogen 15 mg/dL (9-20); Calcium 8.7 mg/dL (8.4-10.2); Carbon Dioxide 25 mmol/L (22-30); Chloride 107 mmol/L (98-107); Glucose 100 mg/dL (74-99); Non-African American GFR(CKD) >90 (>60 ml/min/1.73 sqM); Potassium 3.6 mmol/L (3.5-5.1); Sodium 139 mmol/L (137-145)
[2022-09-20] MEDS: ASPIRIN 81 MG PO SCH (08:32)
[2022-09-20] MEDS: lisinopriL 20 MG TAB PO SCH (08:32)
[2022-09-20] MEDS: FAMOTIDINE 20 MG TAB PO SCH (08:32)
[2022-09-20] MEDS: FUROSEMIDE 40 MG TAB PO SCH (08:32)
[2022-09-20] MEDS: HYDROcodone/APAP 7.5-325MG 1 EACH TAB PO PRN (08:34)
[2022-09-20 08:36] VITALS: TEMP 98.2
[2022-09-20 12:41] VITALS: BP 164/84; PULSE 76
--- NOTE | 2022-09-20 13:09 | P.PN ---
Subjective Progress Note Date: 09/20/22 This is a pleasant 76-year-old gentleman with a past medical history significant for hypertension. He presented to the hospital with increasing shortness of breath and diagnosed with hypertensive emergency, acute with heart failure. Echocardiogram with Doppler study revealed normal LV systolic function. He was also found to have mildly abnormal troponin which was felt to be likely related to hypertensive emergency. He was initiated on IV Lasix and medical regimen was adjusted. He is currently on oral Lasix. He continues to have some dyspnea on exertion when he gets up to go to the bathroom. His blood pressure remains suboptimally controlled. Objective - Vital Signs Vital signs: Vital Signs Temp 98.2 F 09/20/22 08:00 Pulse 82 09/20/22 08:00 Resp 16 09/20/22 08:00 BP 153/72 09/20/22 08:00 Pulse Ox 97 09/20/22 08:00 FiO2 21 09/18/22 09:09 Intake & Output 09/19/22 09/20/22 09/20/22 18:59 06:59 18:59 Intake Total 222 180 Output Total 1950 750 Balance -1728 -750 180 Weight 70.2 kg Intake: Oral 222 180 Output: Urine 1950 750 Other: Voiding Method Toilet Toilet Toilet Urinal Urinal Urinal # Voids 1 - Exam PHYSICAL EXAMINATION: HEENT: Head is atraumatic, normocephalic. Pupils equal, round. Neck is supple. There is no elevated jugular venous pressure. HEART EXAMINATION: Heart sounds regular, S1 and S2 normal. No murmur or gallop heard. CHEST EXAMINATION: Lungs are clear to auscultation. No chest wall tenderness is noted on palpation or with deep breathing. ABDOMEN: Soft, nontender. Bowel sounds are heard. No organomegaly noted. EXTREMITIES: 2+ peripheral pulses with no evidence of peripheral edema and no calf tenderness noted. NEUROLOGIC patient is awake, alert and oriented x3. . - Labs CBC & Chem 7: 09/20/22 07:35 09/20/22 07:35 Labs: Abnormal Lab Results - Last 24 Hours (Table) 09/19/22 09/19/22 09/19/22 Range/Units 15:11 15:11 15:11 RBC 3.47 L (4.30-5.90) m/uL Hgb 11.6 L (13.0-17.5) gm/dL Hct 34.9 L (39.0-53.0) % MCV 100.5 H (80.0-100.0) fL Lymphocytes # (1.0-4.8) k/uL D-Dimer 0.74 H (<0.60) mg/L FEU Creatinine (0.66-1.25) mg/dL Glucose 108 H (74-99) mg/dL 09/20/22 09/20/22 Range/Units 07:35 07:35 RBC 3.55 L (4.30-5.90) m/uL Hgb 11.7 L (13.0-17.5) gm/dL Hct 35.5 L (39.0-53.0) % MCV (80.0-100.0) fL Lymphocytes # 0.8 L (1.0-4.8) k/uL D-Dimer (<0.60) mg/L FEU Creatinine 0.65 L (0.66-1.25) mg/dL Glucose 100 H (74-99) mg/dL Assessment and Plan Assessment: #1 hypertension crisis/hypertension emergency complicated by heart failure #2 heart failure exacerbation secondary to heart failure with preserved ejection fraction #3 history of noncompliance with medications Plan: From cardiology perspective we will increase carvedilol to 6.25 mg by mouth twice a day and add a thiazide 25 mg by mouth daily. Check a BMP in the morning. Depending on his response and renal function further recommendations will be made. [employer] PARAPROFESSIONAL note has been reviewed, I agree with a documented findings and plan of care. Patient was seen and examined.
[2022-09-20] MEDS ORDERED: hydroCHLOROthiazide 25 MG TAB PO SCH (13:15)
--- NOTE | 2022-09-20 13:36 | P.PN ---
Subjective Progress Note Date: 09/20/22 On 09/20/2022, the patient is doing extremely well tospecific complaints. Occupation is normalized. BP is under better control for now. The patient has no chest pain. No angina. No palpitations. There is off the antihypertensive drips and the patient is currently maintaining adequate blood pressure and the most recent blood pressure is 164/84. His current medication regimen is chronic 6.25 mg by mouth twice a day, Cardura 4 mg by mouth daily, Lasix 40 mg by mouth daily, lisinopril 20 mg by mouth daily. His labs are essentially within normal limits. Hemoglobin of 11.7. Normal renal function. ProBNP level is nonelevated. The patient had an echocardiogram that showed normal LV function, there was hypertensive heart disease related to his chronic hypertension. Noted the patient also had a CT angiogram at time of admission that showed no evidence of any pulmonary embolism. There was evidence of pulmonary edema related to hypertensive heart disease/pulmonary edema and it improved. The most recent chest x-ray from 09/19/2022 showed resolution of the pulmonary edema. Objective - Vital Signs Vital signs: Vital Signs Temp 98.2 F 09/20/22 08:00 Pulse 76 09/20/22 12:00 Resp 16 09/20/22 12:00 BP 164/84 09/20/22 12:00 Pulse Ox 96 09/20/22 12:00 FiO2 21 09/18/22 09:09 Intake & Output 09/19/22 09/20/22 09/20/22 18:59 06:59 18:59 Intake Total 222 180 Output Total 1950 750 Balance -1728 -750 180 Weight 70.2 kg Intake: Oral 222 180 Output: Urine 1950 750 Other: Voiding Method Toilet Toilet Toilet Urinal Urinal Urinal # Voids 1 - Exam No acute distress, oriented 3. Currently on room air. No respiratory distress. HEENT examination is grossly unremarkable. Neck supple. Full range of motion. No adenopathy thyromegaly or neck vein distention. Cardiovascular examination reveals regular rhythm rate. S1-S2 normal. No S3 or S4. No discernible murmur noted. Lungs reveal clear breath sounds. Breath sounds are equal bilaterally. No adventitious lung sounds including wheezes rhonchi or crackles. Saturations are 96 % on room air. Abdomen soft bowel sounds are heard. No masses or tenderness. Extremities are intact. No cyanosis clubbing or edema. Skin is without rash or lesion. Neurologic examination is brief but nonfocal. - Labs CBC & Chem 7: 09/20/22 07:35 09/20/22 07:35 Labs: Abnormal Lab Results - Last 24 Hours (Table) 09/19/22 09/19/22 09/19/22 Range/Units 15:11 15:11 15:11 RBC 3.47 L (4.30-5.90) m/uL Hgb 11.6 L (13.0-17.5) gm/dL Hct 34.9 L (39.0-53.0) % MCV 100.5 H (80.0-100.0) fL Lymphocytes # (1.0-4.8) k/uL D-Dimer 0.74 H (<0.60) mg/L FEU Creatinine (0.66-1.25) mg/dL Glucose 108 H (74-99) mg/dL 09/20/22 09/20/22 Range/Units 07:35 07:35 RBC 3.55 L (4.30-5.90) m/uL Hgb 11.7 L (13.0-17.5) gm/dL Hct 35.5 L (39.0-53.0) % MCV (80.0-100.0) fL Lymphocytes # 0.8 L (1.0-4.8) k/uL D-Dimer (<0.60) mg/L FEU Creatinine 0.65 L (0.66-1.25) mg/dL Glucose 100 H (74-99) mg/dL Assessment and Plan Plan: Acute dyspnea secondary to hypertensive urgency and pulmonary edema with significant left ventricular hypertrophy and preserved left ventricular systolic function. Hypertension. Troponin leak. Benign prostatic hyperplasia. Plan: Clinically improved Oxygenation is normalized Continue present antihypertensive medication the patient can be discharged home today from the pulmonary standpoint. We are going to sign off the case.
--- NOTE | 2022-09-20 15:57 | P.PN ---
Subjective Progress Note Date: 09/20/22 Principal diagnosis: Acute onset dyspnea related to hypertensive urgency and pulmonary edema Elevated troponin 76-year-old man brought here by EMS. They had been called to [place] for an individual who was having shortness of breath. The patient was very anxious and not able to give them any history. On arrival, the patient is very dyspneic just keeps repeating that he needs to pee. He did deny chest pain, but he is not able to give any other history due to severe dyspnea. On arrival patient was hypotensive with blood pressure 200s/100s he was also tachycardiac and tachypnea. He was started on IV nitroglycerin and BiPAP. He was stabilized, eventually weaned to nasal cannula. His BP has improved. Initial troponin was negative. He denies any history of CAD, [place], Stroke, diabetes, seizures. EKG reveals sinus tachycardia, HR 111, ST depression noted in V4, V5, V6, I, aVL, II and aVF. Prior EKG similar but patient not as tachycardic Echocardiogram revealed EF 55%, mild mitral regurgitation, mild tricuspid regurgitation Telemetry tracings indicate sinus rhythm CTA chest reveal negative for pulmonary embolism, severe lung Abnormalities bi laterally, likely advanced pulmonary edema. Chest x-ray with bilateral infiltrates noted pneumonia versus pulmonary edema. Laboratory reviewed, CBC 10.2, hemoglobin 11.1, platelets 224, sodium 140, po tassium 3.4, BUN 21, serum current 0.7, troponin negative, proBNP 1010, COVID-19 negative, influenza negative 09/19/2022 Patient is seen and evaluated in room at bedside; He is feeling overall better. The shortness of breath has improved significantly. No lower extremity edema. He has been maintaining normal saturation on room air. On examination he is euvolemic with clear breathing sounds bilaterally and no lower extremity edema noted as well. No symptoms of chest pain or chest discomfort. I'm going to stop the Lasix IV and switched into Lasix by mouth. The pressure has been also improved significantly on the current medical regimen. From the cardiac standp oint of view, the patient can be discharged home in the next 12-24 hours. The echo was reviewed and showed preserved biventricular systolic function was mild left ventricular hypertrophy/hypertensive heart disease. --- continue the current medical regimen with aspirin and beta reanna --- DC Lasix IV and start the patient on Lasix by mouth -- the patient can be discharged in the next 12-24 hours 09/20/2022 Patient monitored resting in bed today. He has been ambulating in room without difficulty. Reports shortness of breath with ambulation. Cardiology has recommended to monitor overnight and has recommended to increase carvedilol to 6.25 BID and also add hydrochlorothiazide 25 mg po daily. Recommended to repeat BMP in AM. Blood pressure today 153/72. Patient reports having a diet primarily [employer], states he walks alot but he has limited choices regarding his meals. Review of Systems Constitutional: Denied any fatigue denied any fever. Cardio vascular: denied any chest pain, palpitations Gastrointestinal: denied any nausea, vomiting, diarrhea Pulmonary: Reports shortness of breath, no cough Neurologic denied any new focal deficits All inpatient medications were reviewed and appropriate changes in these medications as dictated in the interval history and assessment and plan. PHYSICAL EXAMINATION: GENERAL: The patient is alert and oriented x3, not in any acute distress. Well developed, well nourished. HEENT: Pupils are round and equally reacting to light. EOMI. No scleral icterus. No conjunctival pallor. Normocephalic, atraumatic. No pharyngeal erythema. No thyromegaly. CARDIOVASCULAR: S1 and S2 present. No murmurs, rubs, or gallops. PULMONARY: Chest is clear to auscultation, no wheezing or crackles. ABDOMEN: Soft, nontender, nondistended, normoactive bowel sounds. No palpable organomegaly. MUSCULOSKELETAL: No joint swelling or deformity. EXTREMITIES: No cyanosis, clubbing, or pedal edema. NEUROLOGICAL: Gross neurological examination did not reveal any focal deficits. SKIN: No rashes. Assessment and Plan Assessment Acute onset dyspnea likely from hypertensive urgency Hypertensive urgency off home medication prior to admission Acute exacerbation CHF with preserved EF treated with IV lasix Elevated troponin, ACS ruled out Benign prostatic hyperplasia Hx of medication noncompliance Hx of orthopedic surgery to left arm with reconstruction GI prophylaxis DVT prophylaxis Full Code Plan Possible D/C today pending cardiology clearance and further recommendations Continue on oral lasix Patient is educated extensively on importance of life style modifications and diet Patient to receive scale on discharge The impression and plan of care has been dictated by Andie Churchill, Nurse Practitioner as directed. Dr. Kenzie MD I have performed a history and physical examination and medical decision making of this patient, discussed the same with the dictator, and agree with the dictators assessment and plan as written, documented as a scribe. Based on total visit time, I have performed more than 50% of this visit. Objective - Vital Signs Vital signs: Vital Signs Temp 98.2 F 09/20/22 08:00 Pulse 76 09/20/22 12:00 Resp 16 09/20/22 12:00 BP 164/84 09/20/22 12:00 Pulse Ox 96 09/20/22 12:00 FiO2 21 09/18/22 09:09 Intake & Output 09/19/22 09/20/22 09/20/22 18:59 06:59 18:59 Intake Total 222 360 Output Total 1950 750 Balance -1728 -750 360 Weight 70.2 kg Intake: Oral 222 360 Output: Urine 1950 750 Other: Voiding Method Toilet Toilet Toilet Urinal Urinal Urinal # Voids 1 - Labs CBC & Chem 7: 09/20/22 07:35 09/20/22 07:35 Labs: Abnormal Lab Results - Last 24 Hours (Table) 09/19/22 09/19/22 09/19/22 Range/Units 15:11 15:11 15:11 RBC 3.47 L (4.30-5.90) m/uL Hgb 11.6 L (13.0-17.5) gm/dL Hct 34.9 L (39.0-53.0) % MCV 100.5 H (80.0-100.0) fL Lymphocytes # (1.0-4.8) k/uL D-Dimer 0.74 H (<0.60) mg/L FEU Creatinine (0.66-1.25) mg/dL Glucose 108 H (74-99) mg/dL 09/20/22 09/20/22 Range/Units 07:35 07:35 RBC 3.55 L (4.30-5.90) m/uL Hgb 11.7 L (13.0-17.5) gm/dL Hct 35.5 L (39.0-53.0) % MCV (80.0-100.0) fL Lymphocytes # 0.8 L (1.0-4.8) k/uL D-Dimer (<0.60) mg/L FEU Creatinine 0.65 L (0.66-1.25) mg/dL Glucose 100 H (74-99) mg/dL Assessment and Plan Time with Patient: Less than 30
[2022-09-20] MEDS ORDERED: carvediloL 6.25 MG TAB PO SCH (17:30)
--- NOTE | 2022-09-21 15:13 | P.DS ---
Providers Date of admission: 09/16/22 17:15 Attending physician: Thony Chung MD Consults: 09/16/22 17:15 Consult Physician Routine Consulting Provider: Javier Elise Consult Reason/Comments: Hypertensive emergency. Acute pulmonary edema. Do you want consulting provider notified?: Yes Consult Physician Stat Consulting Provider: Jh Chaudhry Consult Reason/Comments: Hypertensive emergency. Acute pulmonary edema. Do you want consulting provider notified?: Yes Primary care physician: Dio Sawant Hospital Course: Final Diagnosis Acute onset dyspnea likely from hypertensive urgency Hypertensive urgency off home medication prior to admission Acute exacerbation CHF with preserved EF treated with IV lasix Elevated troponin, ACS ruled out Benign prostatic hyperplasia Hx of medication noncompliance Hx of orthopedic surgery to left arm with reconstruction Full Code Discharge Disposition Patient was discharged home in fair condition, cardiology had recommended patient be monitored overnight and had recommended to increase carvediolol to 6.25 BID and add hydrochlorothiazide 25 mg po daily. Unfortunately patient was given paperwork and discharged prior to receiving new medications and cardiology clearance. [facility] and they will be contacting patient to set up follow up appointment. Was unable to get ahold of patient and did speak with his ex-significant other who will be giving him the information to call the office and set up an appointment as well. Hospital Course 76-year-old man brought here by EMS. They had been called to [facility] for an individual who was having shortness of breath. Patient states he was walking up the store when he became significant short of breath and that had never happened before. When he came into the ER a chest xray was taken showing perihilar and basilar infiltrates noted possible pneumonia vs. pulmonary edema. Chest CTA was also taken showing severe lung parenchymal abnormalities likely pulmonary edema. There is no pulmonary embolism. D-Dimer on admission 1.52. Patient was started on IV lasix and cardiology was consulted. Echocardiogram done showing an EF of 55% with mild MR and mild TR. Pulmonary services are also consulted. COVID, and influenza negative. He did have troponin elevation and mildly elevated proBNP 1010. Potassium low at 3.3 on admission which improved with supplementation. No white count. He had cholesterol panel done showing triglycerides of 123, cholesterol of 196, LDL of 106, HDL of 65.10. Patient was started on carvedilol 3.125 BID and also lasix 40 mg daily, and aspirin 81 mg po daily. Continues on lisinopril 20 mg po daily. Patient is given education on heart failure and appropriate diet, he mostly eats [employer] and fast food. He is educated on blood pressure monitoring and weight monitoring. Cardiology had recommended keep patient overnight and increasing carvedilol to 6.25 twice a day and also adding hydrochlorothiazide. He was given discharge paperwork prior to this happening and sent home from the hospital before being cleared by consultations. Patient received scripts prior to discharge. Patients person to notify was contacted and disharge instructions were reviewed. 09/20/2022 Patient was evaluated today ambulating around room without difficulty. He is alert x3. Complaints of some intermittent shortness of breath. Lungs are clear, S1 S2 auscultated and abdomen is soft and nontender. He has no peripheral edema. Blood pressure 153/72. Patient was pending discharge with cardiology clearance. Blood pressure elevated at lunch time to 164/84 and cardiology had increased blood pressure medications and recommended to monitor patient overnight. This was not communicated to primary team that cardiology did not clear for discharge and he was given scrips and paper and patient left the hospital. Most recent labs showing white count 5.5, hgb 11.7, sodium 139, potassium 3.6, BUN 15, creatinine 0.65, glucose 100, calcium 8.7. proBNP 1010 on admission, down to 821. D-Dimer improved to 0.74. Please see medication reconciliation for a list of current medication. Thank you for allowing us to participate in the care of this patient. The impression and plan of care has been dictated by Andie Churchill, Nurse Practitioner as directed. Dr. Kenzie MD I have performed a history and physical examination and medical decision making of this patient, discussed the same with the dictator, and agree with the dictators assessment and plan as written, documented as a scribe. Based on total visit time, I have performed more than 50% of this visit. Patient Condition at Discharge: Fair Plan - Discharge Summary Discharge Rx Participant: No New Discharge Prescriptions: New Doxazosin [Cardura] 4 mg PO HS #30 tab carvediloL [Coreg] 3.125 mg PO BID-W/MEALS #60 tab Furosemide [Lasix] 40 mg PO DAILY #30 tab Acetaminophen Tab [Tylenol] 650 mg PO Q4HR PRN tab PRN Reason: Fever And/Or Mild Pain Aspirin 81 mg PO DAILY #30 tab Famotidine [Pepcid] 20 mg PO DAILY #30 tab lisinopriL [Zestril] 20 mg PO DAILY #30 tab Continue Finasteride [Proscar] 5 mg PO HS lisinopriL [Zestril] 20 mg PO HS 30 Days #30 tab HYDROcodone/APAP 7.5-325MG [Bittinger 7.5-325] 1 tab PO TID PRN PRN Reason: Pain Discontinued Terazosin HCl 5 mg PO HS Discharge Medication List Finasteride [Proscar] 5 mg PO HS 10/16/20 [History] HYDROcodone/APAP 7.5-325MG [Bittinger 7.5-325] 1 tab PO TID PRN 03/15/22 [History] lisinopriL [Zestril] 20 mg PO HS 30 Days #30 tab 03/15/22 [Rx] Acetaminophen Tab [Tylenol] 650 mg PO Q4HR PRN tab 09/20/22 [Rx] Aspirin 81 mg PO DAILY #30 tab 09/20/22 [Rx] Doxazosin [Cardura] 4 mg PO HS #30 tab 09/20/22 [Rx] Famotidine [Pepcid] 20 mg PO DAILY #30 tab 09/20/22 [Rx] Furosemide [Lasix] 40 mg PO DAILY #30 tab 09/20/22 [Rx] carvediloL [Coreg] 3.125 mg PO BID-W/MEALS #60 tab 09/20/22 [Rx] lisinopriL [Zestril] 20 mg PO DAILY #30 tab 09/20/22 [Rx] Follow up Appointment(s)/Referral(s): Javier Elise MD [STAFF PHYSICIAN] - 1 Week Dio Sawant MD [Primary Care Provider] - 1-2 days Patient Instructions/Handouts: Heart Failure (ER) Discharge Disposition: HOME SELF-CARE
== END 2022-09-20 15:26 | disposition home or self-care (01) | DRG 291 ==
LOC: EC 15:09 → 3SCARD 17:15
PROVIDERS: ADMIT Internal Medicine; ATTEND Internal Medicine
DX: I11.0 Hypertensive heart disease with heart failure (principal); I50.33 Acute on chronic diastolic (congestive) heart failure; I16.1 Hypertensive emergency; N40.0 Benign prostatic hyperplasia without lower urinary tract symptoms; Z96.60 Presence of unspecified orthopedic joint implant; T46.5X6A Underdosing of other antihypertensive drugs, initial encounter; R77.8 Other specified abnormalities of plasma proteins; G89.29 Other chronic pain; Z20.822 Contact with and (suspected) exposure to COVID-19; Z79.82 Long term (current) use of aspirin; Z79.899 Other long term (current) drug therapy; Z87.891 Personal history of nicotine dependence; Z91.128 Patient's intentional underdosing of medication regimen for other reason; Z91.011 Allergy to milk products
CPT/HCPCS: 36415; 71045; 71046; 71275; 80048; 80053; 80061; 83036; 83605; 83735; 83880; 84484; 85025; 85379; 85610; 85730; 87502; 87635; 93005; 93306; 94660; 94760; 96365; 96366; 96368; 96375; 96376; 99291